=== PATIENT | female | born 1940 | race Asian ===

== ENCOUNTER → 2018-08-27 09:21 | Outpatient (CLI) | payer MEDICARE, OTHER, SELFPAY ==
[2018-08-27 11:17] LABS: Hematocrit 42.8 % (36-46); Hemoglobin 14.4 g/dL (12.0-16.0); Mean Corpuscular HGB Conc 33.5 % (30-36); Mean Corpuscular Hemoglobin 35.7 PG (26-34); Mean Corpuscular Volume 106.3 fL (80-100); Platelet Count 115 X10^3/uL (150-400); Red Blood Cell Count 4.03 X10^6/uL (4.0-5.2); Red Cell Distribution Width 13.7 % (11.6-14.8); White Blood Cell Count 3.9 X10^3/uL (4.5-11.0)
[2018-08-27 11:35] LABS: Alanine Aminotransferase 51 IU/L (9-52); Albumin Globulin Ratio 1.6 (1.0-2.8); Alkaline Phosphatase 105 U/L (38-126); Aspartate Aminotransferase 70 IU/L (14-36); Bilirubin Total 0.8 mg/dL (0.2-1.3); Blood Urea Nitrogen 15 mg/dL (7-17); Calcium 9.9 mg/dL (8.4-10.2); Carbon Dioxide 26 mmol/L (22-32); Chloride 102 mmol/L (98-107); Estimated Glomerular Filt Rate > 60.0 mL/min (>60); Globulin 3.2 g/dL (1.7-4.1); Glucose 109 mg/dL (80-110); HEMOLYSIS < 15 (0-50); Potassium 4.1 mmol/L (3.4-5.1); Sodium 141 mmol/L (137-145); Total Protein 8.2 g/dL (6.3-8.2)
[2018-08-27 11:54] LABS: Vitamin D 25 Hydroxy (D3) 52.4 ng/mL (30.0-100.0)
== END ==
PROVIDERS: PCP Student in an Organized Health Care Education/Training Program; Visit Provider Student in an Organized Health Care Education/Training Program
DX: M85.88 Other specified disorders of bone density and structure, other site (principal); Z78.0 Asymptomatic menopausal state; I10 Essential (primary) hypertension; R94.5 Abnormal results of liver function studies; D69.6 Thrombocytopenia, unspecified; Z91.89 Other specified personal risk factors, not elsewhere classified
CPT/HCPCS: 36415; 77080; 80053; 82306; 85027

== ENCOUNTER → 2019-01-24 10:23 | Outpatient (CLI) | payer MEDICARE, OTHER, SELFPAY ==
[2019-01-24 12:53] LABS: Appearance Urine UA SL CLOUDY; Bilirubin Urine UA NEGATIVE (NEGATIVE); Color Urine UA ORANGE; Glucose Urine UA NEGATIVE (Negative); Ketones Urine UA NEGATIVE (NEGATIVE); Leukocyte Esterase Urine UA TRACE (NEGATIVE); Nitrite Urine UA NEGATIVE (Negative); Occult Blood Urine UA 3+ (Negative); Protein Urine UA 1+ (Negative); Specific Gravity Urine UA <=1.005 (1.000-1.035); Urobilinogen Urine UA 0.2 E.U./dL (0.2)
[2019-01-24 13:16] LABS: pH Urine UA 7.5 (4.5-8.0)
[2019-01-24 13:17] LABS: Bacteria Urine Occasional (0-1); Culture Indicated Urine Specimen Cultured; RBC Urine 30-100/HPF (0-5/HPF); Squamous Epithelial Cell Urine 0-1 /HPF (0-5/HPF); WBC Urine 5-10/HPF (0-5/HPF)
== END ==
PROVIDERS: PCP Student in an Organized Health Care Education/Training Program; Visit Provider Hospitalist
DX: M54.9 Dorsalgia, unspecified (principal)
CPT/HCPCS: 81001; 87086

== ENCOUNTER 2019-09-28 09:08 | Emergency (ER) | payer MEDICARE, OTHER, SELFPAY ==
[2019-09-28] VITALS (9 sets, daily range): BP systolic 99–159; BP diastolic 53–68; PULSE 82–113; RESP 14–26; TEMP 36.9; O2SAT 95–100; BMI 19.2
--- NOTE | 2019-09-28 09:24 | ED.FEMALEGU ---
HPI - Female Genitourinary General Chief complaint: Urogenital-Female Stated complaint: bleeding/ lbp Time Seen by Provider: 09/28/19 09:10 Source: patient Mode of arrival: Ambulatory Limitations: no limitations History of Present Illness HPI Narrative: 78F nonsmoker with history of HTN, and elevated LFTs presents with chief complaint of bloody urine, body aches, and lightheadedness for the past few days. She denies fever, chills, or vomiting but is nauseated. She aches all over but has no specific location of pain. She denies runny nose, sore throat or chest pain, shortness of breath or cough. She states that her blood pressure was low and is referring to ?the bottom number ?being 50. She states that she has a bit fatigued, has poor appetite and gets lightheaded upon standing and walking around. She reports prior episodes of blood in urine but had a negative workup with her PCP. Related Data Home Medications Medication Instructions Recorded Confirmed CA PANTOTHENATE/FOLIC ACID/VIT 1 tab PO QDAY #0 10/27/10 02/21/19 (MULTIVITAMIN) Previous Rx's Medication Instructions Recorded amlodipine 5 mg tablet 5 mg PO QDAY #90 tab 08/29/19 benazepril 20 mg tablet 20 mg PO QDAY #90 tab 08/29/19 Allergies Allergy/AdvReac Type Severity Reaction Status Date / Time Penicillins [PENICILLINS] Allergy Unknown UNKNOWN Verified 09/28/19 10:20 Review of Systems Constitutional Constitutional: Reports body ache(s), Denies chills, Reports fatigue, Denies fever(s), Denies frequent falls, Denies lethargy and Denies weakness Eyes Eyes: Denies change in vision, Denies eye discharge, Denies irritation and Denies loss of vision ENT Ears, Nose, Mouth, and Throat: Denies change in voice, Denies dizziness, Denies neck pain, Denies sore throat and Denies throat swelling Cardiovascular Cardiovascular: Denies chest pain, Denies irregular heart rhythm, Denies lightheadedness, Denies palpitations, Denies dyspnea, Denies dyspnea on exertion and Denies orthopnea Respiratory Respiratory: Denies cough, Denies dyspnea, Denies dyspnea on exertion and Denies wheezing Gastrointestinal Gastrointestinal: Denies abdominal pain, Denies change in bowel habits, Denies diarrhea, Denies nausea and Denies vomiting Genitourinary Genitourinary: Reports hematuria, Denies flank pain, Denies urinary incontinence and Denies urinary urgency Musculoskeletal Musculoskeletal: Denies back pain, Denies muscle weakness, Denies neck pain, Denies numbness and Denies tingling Integumentary/Breasts Skin/Breast: Denies pruritus, Denies erythema, Denies rash and Denies wounds Neurologic Neurologic: Denies behavioral changes, Denies confusion, Denies dizziness, Denies frequent falls, Denies loss of vision, Denies numbness, Denies tingling and Denies weakness Psychiatric Psychiatric: Denies anxiety, Denies behavioral changes, Denies confusion, Denies depression, Denies homicidal ideation and Denies suicidal ideation Endocrine Endocrine: Reports fatigue, Denies flushing and Denies palpitations Hematologic/Lymphatic Hematologic/Lymphatic: Denies easy bruising Allergic/Immunologic Allergic/Immunologic: Denies urticaria, Denies throat swelling and Denies wheezing Patient History Medical History Hypertension (Chronic ~2009) Family History Father Cardiac arrest Smoking Status: Never smoker alcohol intake frequency: 0-2 drinks per day Substance Use Type: does not use Exam Narrative Exam Narrative: GENERAL: [78] year old patient appears stated age. Well-nourished, well-developed patient, in mild distress. HEAD: Atraumatic. Normocephalic. EYES: Pupils equal round and reactive. Extraocular motions intact. No scleral icterus. No injection or drainage. ENT: Nose without bleeding, purulent drainage. Throat without erythema, tonsillar hypertrophy or exudate. Airway patent. NECK: Trachea midline. Non tender CARDIOVASCULAR: Regular rate and rhythm without murmurs, gallops, or rubs. RESPIRATORY: Clear to auscultation. Breath sounds equal bilaterally. No wheezes, rales, or rhonchi. GASTROINTESTINAL: Abdomen soft, non-tender, nondistended. EXTREMITIES: No edema or joint tenderness. BACK: Nontender without deformity or crepitance. No flank tenderness. NEURO: AOx3. SKIN: No rash or erythema of visible areas Initial Vital Signs Initial Vital Signs: Vital Signs Temperature 98.5 F 09/28/19 09:18 Pulse Rate 113 H 09/28/19 09:18 Respiratory Rate 18 09/28/19 09:18 Blood Pressure 150/65 H 09/28/19 09:18 Pulse Oximetry 100 09/28/19 09:18 Course Course Course Narrative: initally patient in agreement with the plan but as things proceed she became increasingly nervous about the concept of a transfer and despite the ability to demonstrate full capacity and understanding of potential risks of refusing transfer she elects to go home. She fully understands that without transfer and definitive treatment she may continue to bleed, become very symptomatic, potentially permanently disabled or even . She has no local family or friends and when asked to her primary care provider is, Dr. Barboza, I called him and he was willing to speak with her as well. He shares the opinion that the patient clearly understands the circumstances ANCA demonstrate capacity. He will follow-up closely with her as an outpatient. Patient understands that she may return immediately with any change of heart and we will welcome her and continue evaluating, stabilizing and likely transferring. Orders Ordered: ED Orders 09/28/19 09:18 UA Complete [Urinalysis and Microscopic] Stat Urine Culture Stat 09/28/19 09:25 XR chest 1V Stat 09/28/19 09:28 Complete Blood Count AUTO DIFF Stat Comprehensive Metabolic Panel Stat D Dimer Stat Lactate (Lactic Acid) Stat Procalcitonin Stat Type and Screen Stat 09/28/19 10:10 CT abdomen pelvis w con Stat CT angio chest PE protocol Stat 09/28/19 10:13 Partial Thromboplastin Time Stat Prothrombin Time INR Stat 09/28/19 10:19 Blood Culture Stat 09/28/19 11:40 Hemoglobin and Hematocrit Stat 09/28/19 14:28 Hemoglobin and Hematocrit Stat Discontinued Medications Sodium Chloride (Normal Saline 0.9%) 1,620 mls @ 540 mls/hr 30 ml/kg infuse over 3 hr (1620 ml) IV NOW ONE Stop: 09/28/19 12:24 Last Infusion: 09/28/19 12:47 Dose: 0 mls/hr Documented by: Admin: 09/28/19 09:35 Dose: 540 mls/hr Documented by: GINA Levofloxacin (Levaquin) 500 mg in 100 mls @ 100 mls/hr IV NOW ONE Stop: 09/28/19 11:10 Last Infusion: 09/28/19 11:48 Dose: 0 mls/hr Documented by: Admin: 09/28/19 10:19 Dose: 100 mls/hr Documented by: GINA Consultations Consultation #1: no local urology available, 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, cannot admit without urology given antwon blood in urine, newly discovered L renal mass page to Urology, face sheet faxed to Transfer [facility], images pushed they are happy to accept Time: 12:11 Vital Signs Vital signs: Vital Signs - 8 hr 09/28/19 11:18 09/28/19 11:38 09/28/19 12:00 Pulse Rate 89 86 82 Respiratory Rate 23 18 14 Blood Pressure [Right Arm] 99/68 115/56 L 159/67 H Pulse Oximetry 100 100 99 09/28/19 12:30 09/28/19 13:40 09/28/19 14:30 Pulse Rate 90 91 H 93 H Respiratory Rate 18 17 26 H Blood Pressure [Right Arm] 107/53 L 103/57 L 108/55 L Pulse Oximetry 100 99 95 09/28/19 16:00 Pulse Rate 95 H Respiratory Rate 21 Blood Pressure [Right Arm] 130/65 Pulse Oximetry 100 MDM - Female Genitourinary Lab Data Result diagrams: 09/28/19 14:28 09/28/19 09:28 Labs: Lab Results 09/28/19 09/28/19 09/28/19 Range/Units 09:18 09:28 09:28 WBC 3.5 L (4.5-11.0) X10^3/uL RBC 2.72 L (4.0-5.2) X10^6/uL Hgb 9.1 L (12.0-16.0) g/dL Hct 26.7 L (36-46) % MCV 98.1 (80-100) fL MCH 33.3 (26-34) PG MCHC 34.0 (30-36) % RDW 13.6 (11.6-14.8) % Plt Count 110 L (150-400) X10^3/uL Neut % (Auto) 73.6 (50-75) % Lymph % (Auto) 9.9 L (25-40) % Morrow % (Auto) 14.7 H (3-14) % Eos % (Auto) 0.1 L (2-4) % Baso % (Auto) 1.7 (0-2) % Neut # (Auto) 2600 (5991-6215) /uL Lymph # (Auto) 300 L (1175-0175) /uL Morrow # (Auto) 500 (0-900) /uL Eos # (Auto) 0 (0-450) /uL Baso # (Auto) 100 (0-100) /uL PT (10.1-12.7) SECONDS INR (0.9-1.3) APTT (26.4-36.2) SECONDS D-Dimer 2860 H (<230) ng/mL Sodium (137-145) mmol/L Potassium (3.4-5.1) mmol/L Chloride (98-107) mmol/L Carbon Dioxide (22-32) mmol/L BUN (7-17) mg/dL Creatinine (0.52-1.04) mg/dL Estimated GFR (>60) mL/min BUN/Creatinine Ratio (6-22) Glucose (80-110) mg/dL Lactate (0.7-2.1) mmol/L Calcium (8.4-10.2) mg/dL Total Bilirubin (0.2-1.3) mg/dL AST (14-36) IU/L ALT (<35) IU/L Alkaline Phosphatase (38-126) U/L Total Protein (6.3-8.2) g/dL Albumin (3.5-5.0) g/dL Globulin (1.7-4.1) g/dL Albumin/Globulin Ratio (1.0-2.8) Procalcitonin (<0.5) ng/mL Urine Color Red Urine Appearance Cloudy Urine pH TNP Ur Specific Foster TNP Urine Protein TNP Urine Glucose (UA) TNP Urine Ketones TNP Urine Occult Blood TNP Urine Nitrate TNP Urine Bilirubin TNP Urine Urobilinogen TNP Ur Leukocyte Esterase TNP Urine RBC >100/hpf H (0-5/HPF) Urine WBC >100/hpf H (0-5/HPF) Urine Bacteria None seen (None) Ur Culture Indicated? Specimen cultured COVID-19 PCR (Negative) Blood Type Antibody Screen 09/28/19 09/28/19 09/28/19 Range/Units 09:28 09:28 09:28 WBC (4.5-11.0) X10^3/uL RBC (4.0-5.2) X10^6/uL Hgb (12.0-16.0) g/dL Hct (36-46) % MCV (80-100) fL MCH (26-34) PG MCHC (30-36) % RDW (11.6-14.8) % Plt Count (150-400) X10^3/uL Neut % (Auto) (50-75) % Lymph % (Auto) (25-40) % Morrow % (Auto) (3-14) % Eos % (Auto) (2-4) % Baso % (Auto) (0-2) % Neut # (Auto) (9119-1447) /uL Lymph # (Auto) (0135-3549) /uL Morrow # (Auto) (0-900) /uL Eos # (Auto) (0-450) /uL Baso # (Auto) (0-100) /uL PT (10.1-12.7) SECONDS INR (0.9-1.3) APTT (26.4-36.2) SECONDS D-Dimer (<230) ng/mL Sodium 139 (137-145) mmol/L Potassium 3.9 (3.4-5.1) mmol/L Chloride 106 (98-107) mmol/L Carbon Dioxide 25 (22-32) mmol/L BUN 12 (7-17) mg/dL Creatinine 0.74 (0.52-1.04) mg/dL Estimated GFR > 60.0 (>60) mL/min BUN/Creatinine Ratio 16.2 (6-22) Glucose 125 H (80-110) mg/dL Lactate 1.7 (0.7-2.1) mmol/L Calcium 8.5 (8.4-10.2) mg/dL Total Bilirubin 0.5 (0.2-1.3) mg/dL AST 41 H (14-36) IU/L ALT 20 (<35) IU/L Alkaline Phosphatase 86 (38-126) U/L Total Protein 6.8 (6.3-8.2) g/dL Albumin 3.9 (3.5-5.0) g/dL Globulin 2.9 (1.7-4.1) g/dL Albumin/Globulin Ratio 1.3 (1.0-2.8) Procalcitonin 0.05 (<0.5) ng/mL Urine Color Urine Appearance Urine pH Ur Specific Foster Urine Protein Urine Glucose (UA) Urine Ketones Urine Occult Blood Urine Nitrate Urine Bilirubin Urine Urobilinogen Ur Leukocyte Esterase Urine RBC (0-5/HPF) Urine WBC (0-5/HPF) Urine Bacteria (None) Ur Culture Indicated? COVID-19 PCR (Negative) Blood Type Antibody Screen 09/28/19 09/28/19 09/28/19 Range/Units 09:28 10:13 11:40 WBC (4.5-11.0) X10^3/uL RBC (4.0-5.2) X10^6/uL Hgb 7.8 L (12.0-16.0) g/dL Hct 22.7 L (36-46) % MCV (80-100) fL MCH (26-34) PG MCHC (30-36) % RDW (11.6-14.8) % Plt Count (150-400) X10^3/uL Neut % (Auto) (50-75) % Lymph % (Auto) (25-40) % Morrow % (Auto) (3-14) % Eos % (Auto) (2-4) % Baso % (Auto) (0-2) % Neut # (Auto) (4652-4935) /uL Lymph # (Auto) (6870-9861) /uL Morrow # (Auto) (0-900) /uL Eos # (Auto) (0-450) /uL Baso # (Auto) (0-100) /uL PT 11.0 (10.1-12.7) SECONDS INR 1.0 (0.9-1.3) APTT 30 (26.4-36.2) SECONDS D-Dimer (<230) ng/mL Sodium (137-145) mmol/L Potassium (3.4-5.1) mmol/L Chloride (98-107) mmol/L Carbon Dioxide (22-32) mmol/L BUN (7-17) mg/dL Creatinine (0.52-1.04) mg/dL Estimated GFR (>60) mL/min BUN/Creatinine Ratio (6-22) Glucose (80-110) mg/dL Lactate (0.7-2.1) mmol/L Calcium (8.4-10.2) mg/dL Total Bilirubin (0.2-1.3) mg/dL AST (14-36) IU/L ALT (<35) IU/L Alkaline Phosphatase (38-126) U/L Total Protein (6.3-8.2) g/dL Albumin (3.5-5.0) g/dL Globulin (1.7-4.1) g/dL Albumin/Globulin Ratio (1.0-2.8) Procalcitonin (<0.5) ng/mL Urine Color Urine Appearance Urine pH Ur Specific Foster Urine Protein Urine Glucose (UA) Urine Ketones Urine Occult Blood Urine Nitrate Urine Bilirubin Urine Urobilinogen Ur Leukocyte Esterase Urine RBC (0-5/HPF) Urine WBC (0-5/HPF) Urine Bacteria (None) Ur Culture Indicated? COVID-19 PCR (Negative) Blood Type O Positive Antibody Screen Negative 09/28/19 09/28/19 Range/Units 12:05 14:28 WBC (4.5-11.0) X10^3/uL RBC (4.0-5.2) X10^6/uL Hgb 8.3 L (12.0-16.0) g/dL Hct 24.5 L (36-46) % MCV (80-100) fL MCH (26-34) PG MCHC (30-36) % RDW (11.6-14.8) % Plt Count (150-400) X10^3/uL Neut % (Auto) (50-75) % Lymph % (Auto) (25-40) % Morrow % (Auto) (3-14) % Eos % (Auto) (2-4) % Baso % (Auto) (0-2) % Neut # (Auto) (0306-2100) /uL Lymph # (Auto) (5446-5357) /uL Morrow # (Auto) (0-900) /uL Eos # (Auto) (0-450) /uL Baso # (Auto) (0-100) /uL PT (10.1-12.7) SECONDS INR (0.9-1.3) APTT (26.4-36.2) SECONDS D-Dimer (<230) ng/mL Sodium (137-145) mmol/L Potassium (3.4-5.1) mmol/L Chloride (98-107) mmol/L Carbon Dioxide (22-32) mmol/L BUN (7-17) mg/dL Creatinine (0.52-1.04) mg/dL Estimated GFR (>60) mL/min BUN/Creatinine Ratio (6-22) Glucose (80-110) mg/dL Lactate (0.7-2.1) mmol/L Calcium (8.4-10.2) mg/dL Total Bilirubin (0.2-1.3) mg/dL AST (14-36) IU/L ALT (<35) IU/L Alkaline Phosphatase (38-126) U/L Total Protein (6.3-8.2) g/dL Albumin (3.5-5.0) g/dL Globulin (1.7-4.1) g/dL Albumin/Globulin Ratio (1.0-2.8) Procalcitonin (<0.5) ng/mL Urine Color Urine Appearance Urine pH Ur Specific Foster Urine Protein Urine Glucose (UA) Urine Ketones Urine Occult Blood Urine Nitrate Urine Bilirubin Urine Urobilinogen Ur Leukocyte Esterase Urine RBC (0-5/HPF) Urine WBC (0-5/HPF) Urine Bacteria (None) Ur Culture Indicated? COVID-19 PCR Negative (Negative) Blood Type Antibody Screen Imaging Data CT scan - chest: Radiologist's Impression: [address] [address] [address] Scan Report Signed Patient: Amanda Soto LMR#: [id number] : 1Acct:[id number] Age/Sex: 78 / FDate of Service: 09/28/19 Loc: ED Accession Number: [id number] Procedure: CT angio chest PE protocol Ordering Provider: Alphonso Werner D.O. PROCEDURE: CT ANGIO CHEST PE PROTOCOL INDICATIONS: fatigue, tachycardia, lightheaded, critical DDimer TECHNIQUE: After the administration of intravenous contrast, 2 mm thick sections acquired from the pulmonary apices to the posterior costophrenic angles. 3-dimensional maximum intensity projection (MIP) coronal and sagittal reformats were then acquired through the thorax. For radiation dose reduction, the following was used: automated exposure control, adjustment of mA and/or kV according to patient size. COMPARISON: None. FINDINGS: Image quality: Excellent. Pulmonary arteries: Pulmonary arteries are normal in size, and demonstrate no intraluminal filling defects to suggest central pulmonary embolism. Lungs and pleura: Mild dependent groundglass opacity can be seen. No pleural effusions or pneumothorax. Central and peripheral airways are patent. Mediastinum: Heart size is normal, without pericardial effusion. No mediastinal or hilar adenopathy. Thoracic aorta is normal in caliber and enhancement. The ascending thoracic aorta measures 4 cm. Esophagus is normal in caliber, without hiatal hernia. Bones and chest wall: No suspicious bony lesions. Ribs and thoracic spine appear intact throughout. Ruptured breast implants can be seen. Thyroid gland has undergone R. left hemithyroidectomy. The right thyroid is nodular. Enlarged right axillary lymph nodes seen, with the largest measuring 14 x 17 mm in greatest axial dimension, as on series 4 image 45. No supraclavicular adenopathy is seen. Numerous tiny soft tissue nodules and calcifications can be seen involving the subpectoral regions and axillary regions. Abdomen: There is a simple cyst seen involving the left liver dome. The visualized portions of the upper abdominal structures are otherwise unremarkable for imaging technique. IMPRESSION: Negative for pulmonary embolism. Dependent groundglass opacity is seen. Differential diagnosis includes pulmonary edema and atelectasis. Ruptured breast implants, with tiny nodules and calcifications involving subpectoral regions and axillary regions. Enlarged right axillary lymph nodes are seen. Prior left hemithyroidectomy. The right thyroid is nodular. If clinically appropriate, a followup ultrasound could be considered for evaluation. Incidental note is made of: Ascending aorta at the upper limits of normal Simple appearing liver dome cyst Dictated by: Felix Baca M.D. on 09/28/2019 at 9:51 Approved by: Felix Baca M.D. on 09/28/2019 at 9:58 CT scan - abdomen/pelvis: Radiologist's Impression: [address] [address] [address] Scan Report Signed Patient: Amanda Soto LMR#: [id number] : 1Acct:[id number] Age/Sex: 78 / FDate of Service: 09/28/19 Loc: ED Accession Number: [id number] Procedure: CT abdomen pelvis w con Ordering Provider: Alphonso Werner D.O. PROCEDURE: CT ABDOMEN PELVIS W CON INDICATIONS: flank pain, gross hematuria TECHNIQUE: After the administration of intravenous contrast, 5 mm thick sections acquired from the diaphragm to the symphysis. 5 mm coronal and sagittal reformats were acquired. For radiation dose reduction, the following was used: automated exposure control, adjustment of mA and/or kV according to patient size. COMPARISON: Merged With [facility], CT, CT ANGIO CHEST PE PROTOCOL, 09/28/2019, 10:11. Merged With [facility], CR, XR CHEST 1V, 09/28/2019, 9:43. FINDINGS: Image quality: Excellent. ABDOMEN: Lung bases: Lung bases are clear. Heart size is normal. Solid organs: Liver is normal in size and enhancement. A simple cyst is seen involving the left liver dome, as on series 2 image 13 measuring 12 mm and measuring 10 Hounsfield units. Gallbladder is partially decompressed at the time of this study. Biliary system is non dilated. Pancreas enhances normally. Spleen is normal in size and enhancement. No adrenal nodules. In this patient with this given history, scrutiny is given to the kidneys. There is enhancing left renal mass seen superiorly, as on series 2 image 36 and on series 4 image 31 measuring 2.3 x 1.8 x 2.5 cm. This lesion at least partially involves the left renal collecting system. There is associated prominence of the left superior renal collecting system. Peritoneum and bowel: Bowel loops demonstrate normal wall thickness and caliber. No free fluid or air. Diverticulosis is seen, without findings of active diverticulitis. Nodes and vessels: No retroperitoneal or mesenteric adenopathy by size criteria. Aorta and inferior vena cava are normal in size. Atherosclerotic calcification is noted. Miscellaneous: No ventral hernias. PELVIS: Genitourinary: Bladder wall thickness is normal. No uterus or adnexal abnormality is detected. Miscellaneous: No inguinal hernias or adenopathy. Bones: No suspicious bony lesions. There is a remote T12 anterior wedge deformity, with 30-40% loss of height anteriorly. Degenerative changes are seen throughout, which are most prominent along the lower lumbar spine. Mild levoconvex scoliotic curvature is noted. IMPRESSION: Enhancing left renal mass. Given the history, primary neoplasm is presumed. Given the appearance in the position of this mass, differential diagnosis includes transitional cell carcinoma and renal cell carcinoma. There is associated prominence of the left superior renal collecting system. No antwon findings of metastatic disease are detected. Incidental note is made of: Left liver dome simple cyst Remote T12 anterior wedge deformity Levoconvex scoliotic curvature Diverticulosis is seen, without findings of active diverticulitis. Dictated by: Felix Baca M.D. on 09/28/2019 at 10:09 Approved by: Felix Baca M.D. on 09/28/2019 at 10:15 Discharge Plan Departure Patient Disposition: Left Against Medical Advice Clinical Impression: Hematuria Qualifiers: Hematuria type: gross Qualified Code(s): R31.0 - Gross hematuria Renal cell adenocarcinoma Qualifiers: Laterality: left Qualified Code(s): C64.2 - Malignant neoplasm of left kidney, except renal pelvis Discharge Date/Time: 09/28/19 16:34 Instructions: DI for Hematuria Activity Restrictions/Additional Instructions: *You have been diagnosed with [gross hematuria, left kidney mass, likely renal cell carcinoma] *What to do: * continue to take medications as directed *Follow up with your primary care provider in 2-3 days, call for an appointment. Let them know you were seen in the Emergency Department and that we ask that you be seen in follow up *Return to ER if you should have any new, worsening or concerning symptoms Please return immediately for any change in your thinking, we will gladly continue your treatment and work on transfer Prescriptions: No Action CA PANTOTHENATE/FOLIC ACID/VIT (MULTIVITAMIN) 1 tab PO QDAY Qty: 0 RF: 0 amlodipine [Norvasc] 5 mg tablet 5 mg PO QDAY Qty: 90 RF: 1 benazepril 20 mg tablet 20 mg PO QDAY Qty: 90 RF: 1 Referrals: Pranay Barboza MD [Primary Care Provider] - Stand Alone Forms: Against Medical Advice
--- NOTE | 2019-09-28 09:25 | DI.RAD.S_ITS ---
PROCEDURE: XR CHEST 1V INDICATIONS: sepsis workup TECHNIQUE: One view of the chest was acquired. COMPARISON: Prior chest radiographs are not available from the archive for review at the time of this dictation. FINDINGS: Surgical changes and devices: None. Lungs and pleura: Lungs are clear. No pleural effusions or pneumothorax. Mediastinum: The cardiac contours are within normal limits. The aorta demonstrates calcification and tortuosity. Bones and chest wall: No suspicious bony lesions. Age-appropriate bony degenerative changes are seen. Overlying soft tissues appear unremarkable. IMPRESSION: Clear lungs, without infiltrates. Dictated by: Felix Baca M.D. on 09/28/2019 at 9:19 Approved by: Felix Baca M.D. on 09/28/2019 at 9:22
[2019-09-28] MEDS: SODIUM CHLORIDE 0.9% 1,620 ML 540 ML IV (09:35)
[2019-09-28 09:44] LABS: Bacteria Urine None Seen
--- NOTE | 2019-09-28 09:46 | PC.NURSE ---
Denies any pain with urination. Does C/O low back pain and neck pain. Pt states she has had bleeding with urination once before but they never found anything wrong and it went away on its own.
[2019-09-28 09:49] LABS: Add Manual Diff / Slide Review NO; Basophils Absolute Auto 100 /uL (0-100); Basophils Percent Auto 1.7 % (0-2); Eosinophils Absolute Auto 0 /uL (0-450); Eosinophils Percent Auto 0.1 % (2-4); Hematocrit 26.7 % (36-46); Hemoglobin 9.1 g/dL (12.0-16.0); Lymphocytes Absolute Auto 300 /uL (1100-4500); Lymphocytes Percent Auto 9.9 % (25-40); Mean Corpuscular Hemoglobin 33.3 PG (26-34); Mean Corpuscular Volume 98.1 fL (80-100); Monocytes Absolute Auto 500 /uL (0-900); Monocytes Percent Auto 14.7 % (3-14); Neutrophils Absolute Auto 2600 /uL (1500-7000); Neutrophils Percent Auto 73.6 % (50-75); Platelet Count 110 X10^3/uL (150-400); Red Blood Cell Count 2.72 X10^6/uL (4.0-5.2); Red Cell Distribution Width 13.6 % (11.6-14.8); White Blood Cell Count 3.5 X10^3/uL (4.5-11.0)
[2019-09-28 09:57] LABS: Alanine Aminotransferase 20 IU/L (<35); Albumin 3.9 g/dL (3.5-5.0); Albumin Globulin Ratio 1.3 (1.0-2.8); Alkaline Phosphatase 86 U/L (38-126); Aspartate Aminotransferase 41 IU/L (14-36); BUN Creatinine Ratio 16.2 (6-22); Bilirubin Total 0.5 mg/dL (0.2-1.3); Blood Urea Nitrogen 12 mg/dL (7-17); Calcium 8.5 mg/dL (8.4-10.2); Carbon Dioxide 25 mmol/L (22-32); Chloride 106 mmol/L (98-107); Estimated Glomerular Filt Rate > 60.0 mL/min (>60); Globulin 2.9 g/dL (1.7-4.1); Glucose 125 mg/dL (80-110); HEMOLYSIS < 15 (0-50); Lactate (Lactic Acid) 1.7 mmol/L (0.7-2.1); Potassium 3.9 mmol/L (3.4-5.1); Sodium 139 mmol/L (137-145); Total Protein 6.8 g/dL (6.3-8.2)
[2019-09-28 10:01] LABS: Appearance Urine UA CLOUDY; Color Urine UA RED; RBC Urine >100/HPF (0-5/HPF); WBC Urine >100/HPF (0-5/HPF)
[2019-09-28 10:02] LABS: Culture Indicated Urine Specimen Cultured
[2019-09-28 10:03] LABS: D Dimer 2860 ng/mL (<230)
--- NOTE | 2019-09-28 10:10 | DI.CT.S_ITS ---
PROCEDURE: CT ANGIO CHEST PE PROTOCOL INDICATIONS: fatigue, tachycardia, lightheaded, critical DDimer TECHNIQUE: After the administration of intravenous contrast, 2 mm thick sections acquired from the pulmonary apices to the posterior costophrenic angles. 3-dimensional maximum intensity projection (MIP) coronal and sagittal reformats were then acquired through the thorax. For radiation dose reduction, the following was used: automated exposure control, adjustment of mA and/or kV according to patient size. COMPARISON: None. FINDINGS: Image quality: Excellent. Pulmonary arteries: Pulmonary arteries are normal in size, and demonstrate no intraluminal filling defects to suggest central pulmonary embolism. Lungs and pleura: Mild dependent groundglass opacity can be seen. No pleural effusions or pneumothorax. Central and peripheral airways are patent. Mediastinum: Heart size is normal, without pericardial effusion. No mediastinal or hilar adenopathy. Thoracic aorta is normal in caliber and enhancement. The ascending thoracic aorta measures 4 cm. Esophagus is normal in caliber, without hiatal hernia. Bones and chest wall: No suspicious bony lesions. Ribs and thoracic spine appear intact throughout. Ruptured breast implants can be seen. Thyroid gland has undergone R. left hemithyroidectomy. The right thyroid is nodular. Enlarged right axillary lymph nodes seen, with the largest measuring 14 x 17 mm in greatest axial dimension, as on series 4 image 45. No supraclavicular adenopathy is seen. Numerous tiny soft tissue nodules and calcifications can be seen involving the subpectoral regions and axillary regions. Abdomen: There is a simple cyst seen involving the left liver dome. The visualized portions of the upper abdominal structures are otherwise unremarkable for imaging technique. IMPRESSION: Negative for pulmonary embolism. Dependent groundglass opacity is seen. Differential diagnosis includes pulmonary edema and atelectasis. Ruptured breast implants, with tiny nodules and calcifications involving subpectoral regions and axillary regions. Enlarged right axillary lymph nodes are seen. Prior left hemithyroidectomy. The right thyroid is nodular. If clinically appropriate, a followup ultrasound could be considered for evaluation. Incidental note is made of: Ascending aorta at the upper limits of normal Simple appearing liver dome cyst Dictated by: Felix Baca M.D. on 09/28/2019 at 9:51 Approved by: Felix Baca M.D. on 09/28/2019 at 9:58
--- NOTE | 2019-09-28 10:10 | DI.CT.S_ITS ---
PROCEDURE: CT ABDOMEN PELVIS W CON INDICATIONS: flank pain, gross hematuria TECHNIQUE: After the administration of intravenous contrast, 5 mm thick sections acquired from the diaphragm to the symphysis. 5 mm coronal and sagittal reformats were acquired. For radiation dose reduction, the following was used: automated exposure control, adjustment of mA and/or kV according to patient size. COMPARISON: [facility], CT, CT ANGIO CHEST PE PROTOCOL, 09/28/2019, 10:11. [facility], CR, XR CHEST 1V, 09/28/2019, 9:43. FINDINGS: Image quality: Excellent. ABDOMEN: Lung bases: Lung bases are clear. Heart size is normal. Solid organs: Liver is normal in size and enhancement. A simple cyst is seen involving the left liver dome, as on series 2 image 13 measuring 12 mm and measuring 10 Hounsfield units. Gallbladder is partially decompressed at the time of this study. Biliary system is non dilated. Pancreas enhances normally. Spleen is normal in size and enhancement. No adrenal nodules. In this patient with this given history, scrutiny is given to the kidneys. There is enhancing left renal mass seen superiorly, as on series 2 image 36 and on series 4 image 31 measuring 2.3 x 1.8 x 2.5 cm. This lesion at least partially involves the left renal collecting system. There is associated prominence of the left superior renal collecting system. Peritoneum and bowel: Bowel loops demonstrate normal wall thickness and caliber. No free fluid or air. Diverticulosis is seen, without findings of active diverticulitis. Nodes and vessels: No retroperitoneal or mesenteric adenopathy by size criteria. Aorta and inferior vena cava are normal in size. Atherosclerotic calcification is noted. Miscellaneous: No ventral hernias. PELVIS: Genitourinary: Bladder wall thickness is normal. No uterus or adnexal abnormality is detected. Miscellaneous: No inguinal hernias or adenopathy. Bones: No suspicious bony lesions. There is a remote T12 anterior wedge deformity, with 30-40% loss of height anteriorly. Degenerative changes are seen throughout, which are most prominent along the lower lumbar spine. Mild levoconvex scoliotic curvature is noted. IMPRESSION: Enhancing left renal mass. Given the history, primary neoplasm is presumed. Given the appearance in the position of this mass, differential diagnosis includes transitional cell carcinoma and renal cell carcinoma. There is associated prominence of the left superior renal collecting system. No antwon findings of metastatic disease are detected. Incidental note is made of: Left liver dome simple cyst Remote T12 anterior wedge deformity Levoconvex scoliotic curvature Diverticulosis is seen, without findings of active diverticulitis. Dictated by: Felix Baca M.D. on 09/28/2019 at 10:09 Approved by: Felix Baca M.D. on 09/28/2019 at 10:15
[2019-09-28 10:12] LABS: Procalcitonin 0.05 ng/mL (<0.5)
[2019-09-28] MEDS: levoFLOXacin 500 MG/100 ML PIGGYBACK 100 MG IV (10:19)
[2019-09-28 10:20] LABS: PTT Partial Thromboplastin Tim 30 SECONDS (26.4-36.2)
[2019-09-28 11:50] LABS: Hematocrit 22.7 % (36-46); Hemoglobin 7.8 g/dL (12.0-16.0)
[2019-09-28 13:06] LABS: COVID19 -Nasal RAPID Negative (Negative)
[2019-09-28 14:43] LABS: Hematocrit 24.5 % (36-46); Hemoglobin 8.3 g/dL (12.0-16.0)
== END 2019-09-28 16:34 | disposition left against medical advice (07) ==
PROVIDERS: Emergency Provider Emergency Medicine; PCP Student in an Organized Health Care Education/Training Program
DX: R31.0 Gross hematuria (principal); N28.89 Other specified disorders of kidney and ureter; R00.0 Tachycardia, unspecified; R42 Dizziness and giddiness; I10 Essential (primary) hypertension; R94.5 Abnormal results of liver function studies; Z11.59 Encounter for screening for other viral diseases
CPT/HCPCS: 36415; 71045; 71275; 74177; 80053; 81001; 83605; 84145; 85014; 85018; 85025; 85379; 85610; 85730; 86850; 86900; 86901; 87040; 87086; 87635; 96365; 99285; J1956; Q9967

== ENCOUNTER → 2019-12-22 08:32 | Outpatient (CLI) | payer MEDICARE, OTHER, SELFPAY | PROVIDERS: PCP Registered Nurse Diabetes Educator; Visit Provider Registered Nurse Diabetes Educator | DX: R31.9 Hematuria, unspecified (principal) | CPT/HCPCS: 87086 ==

== ENCOUNTER → 2020-01-08 10:30 | Oncology outpatient (ONC) | payer MEDICARE, OTHER, SELFPAY ==
[2020-01-08 11:50] VITALS: BP 148/73; PULSE 87; RESP 18; TEMP 37.2; O2SAT 100
--- NOTE | 2020-01-08 12:10 | ONC.CONS ---
History of Present Illness - Data of Consult Patient: new to practice Consult date: 01/08/20 Requesting Physician: CALLI Rob Primary Care Provider: CALLI Rob - Consult Narrative Reason for consult: Left renal pelvis mass Narrative: Amanda Soto is a 79 year old female with medical problems most notable for hypertension. Patient lives by herself alone. more than 10 years ago. She has no support at home. She said that in April 2019, she first noticed urine in the blood, and had a negative workup per record. On 09/28/2019 she went to emergency room at [facility] because of blood in the urine with fatigue. CT abdomen and pelvis showed an enhancing left renal mass suspicious for possible transitional cell carcinoma and renal cell carcinoma. There was associated prominence of the left superior renal collecting system. No antwon findings of metastatic disease were detected. Patient was referred to [facility], but the patient refused and left Against Medical Advice. While at the emergency room, antibiotics was given. Patient said that thereafter the hematuria has stopped for the next 3 months. About 1 and half month ago, she said that the hematuria returned. She said no pain associated with hematuria. But the hematuria was somewhat scary. Patient reports tired sometimes. Patient has a weight loss of about a couple of lb. CC: Nathalia Anthony MD Patient reports pain?: No Home Medications and Allergies Home Medications Medication Instructions Recorded Confirmed Type CA PANTOTHENATE/FOLIC ACID/VIT 1 tab PO QDAY #0 10/27/10 01/08/20 History (MULTIVITAMIN) amlodipine 5 mg tablet 5 mg PO QDAY #90 tab 12/29/19 01/08/20 Rx benazepril 20 mg tablet 20 mg PO QDAY #90 tab 12/29/19 01/08/20 Rx Allergies Allergy/AdvReac Type Severity Reaction Status Date / Time Penicillins [PENICILLINS] Allergy Unknown UNKNOWN Verified 12/22/19 08:19 Medical History - Medical, Surgical, Family History Medical History: Medical History (Last Updated 12/22/19 @ 08:49 by CALLI Rob) Anemia Hypertension Onset Date: ~2009 Left renal mass Surgical History: Surgical History (Last Updated 01/08/20 @ 12:33 by Nathalia Anthony MD) H/O tubal ligation History of thyroid surgery Family History: Family History (Last Reviewed 09/28/19 @ 09:54 by Alphonso Werner DO) Father Cardiac arrest - Social History Smoking Status: Never smoker Substance Use Type: does not use Alcohol Intake Frequency: 0-2 drinks per day Review of Systems - Patient Self-Reported Symptoms SR Constitution: Weight loss/gain SR Cardiovascular issues: Dizzy/lightheaded SR Genitourinary issues: Blood in urine SR Musculoskeletal issues: Muscle weakness, Back or neck pain, Cold hands or feet SR Neuro issues: Lightheaded/dizzy All systems PM: reviewed and no additional remarkable complaints except as stated Exam Vital signs: Vital Signs Temp Pulse Resp BP Pulse Ox 01/08/20 11:50 99 F 87 18 148/73 H 100 Intake and Output 01/07/20 01/08/20 01/08/20 23:59 07:59 15:59 Other: Weight 52 kg Patient Weight 01/08/20 23:59 Weight 52 kg - Constitutional positive no acute distress, positive thin, positive chronically ill appearing, positive cooperative - Routine HEENT Exam Head: Present: normocephalic, atraumatic Eye: Present: EOMI, PERRL, normal accommodation. Absent: conjunctival icterus - Routine Neck Exam Present: supple. Absent: lymphadenopathy, thyromegaly - Routine Chest/Breast/Axilla Exam Axillae: Absent: lymphadenopathy - Routine Respiratory Exam Present: Clear to auscultation bilaterally. Absent: accessory muscle use, rales, wheezes - Routine Cardiovascular Exam Present: RRR, S1, S2. Absent: murmur, gallop, rubs - Routine Abdominal Exam Present: soft. Absent: tenderness, organomegaly - Routine Extremities Exam Absent: edema - Routine Neurological Exam Present: alert, oriented X3, CN II-XII intact. Absent: sensory deficit, motor deficit - Routine Psychiatric Exam Present: normal affect Results - Labs Pending Assessment and Plan (1) Left renal mass Overview: 79-year-old female with history of hypertension now presents with more than 9 months of intermittent hematuria without associated pain. She was evaluated at emergency room in August [address] scan showed left renal pelvis enhancing lesion highly suspicious for transitional cell carcinoma or renal cell carcinoma. Patient was referred here for further evaluation. Assessment: Patient brought in a book where it says that hematuria can be caused by nephritis. Patient said that her symptom is exactly like that. And she wants me to prescribe antibiotics. I tried to explain to the patient that the blood in the urine has several different etiologies. One of the etiologies could be nephritis. However given her imaging findings of left pelvis mass, it is most likely a result of malignancy. I talked with our urologist Dr. Bell today and reviewed the CT scans together. Dr. Bell was suspicious that the patient may have urothelial carcinoma. I will obtain blood work and will also obtain a staging studies including CT chest abdomen pelvis with contrast. Dr. eBll agreed to see the patient urgently. Plan: CBC, CMP CT CAP w/contrast Urgent referral to Dr. Bell RTC in one month (2) Painless hematuria See above discussion
[2020-01-08 13:12] LABS: Add Manual Diff / Slide Review NO; Basophils Absolute Auto 0 /uL (0-100); Basophils Percent Auto 1.1 % (0-2); Eosinophils Absolute Auto 0 /uL (0-450); Eosinophils Percent Auto 0.9 % (2-4); Hematocrit 36.4 % (36-46); Hemoglobin 11.8 g/dL (12.0-16.0); Lymphocytes Absolute Auto 1200 /uL (1100-4500); Lymphocytes Percent Auto 34.3 % (25-40); Mean Corpuscular HGB Conc 32.5 % (30-36); Mean Corpuscular Hemoglobin 30.6 PG (26-34); Monocytes Absolute Auto 200 /uL (0-900); Neutrophils Absolute Auto 2000 /uL (1500-7000); Neutrophils Percent Auto 56.7 % (50-75); Platelet Count 165 X10^3/uL (150-400); Red Blood Cell Count 3.87 X10^6/uL (4.0-5.2); Red Cell Distribution Width 18.7 % (11.6-14.8); White Blood Cell Count 3.5 X10^3/uL (4.5-11.0)
[2020-01-08 13:23] LABS: Alanine Aminotransferase 25 IU/L (<35); Albumin 4.5 g/dL (3.5-5.0); Albumin Globulin Ratio 1.3 (1.0-2.8); Alkaline Phosphatase 101 U/L (38-126); Aspartate Aminotransferase 47 IU/L (14-36); BUN Creatinine Ratio 14.8 (6-22); Bilirubin Total 0.5 mg/dL (0.2-1.3); Blood Urea Nitrogen 9 mg/dL (7-17); Carbon Dioxide 28 mmol/L (22-32); Chloride 106 mmol/L (98-107); Estimated Glomerular Filt Rate > 60.0 mL/min (>60); Globulin 3.4 g/dL (1.7-4.1); Glucose 97 mg/dL (80-110); HEMOLYSIS < 15 (0-50); Potassium 3.9 mmol/L (3.4-5.1); Sodium 141 mmol/L (137-145); Total Protein 7.9 g/dL (6.3-8.2)
--- NOTE | 2020-01-08 13:40 | ONC.MSW ---
Description: New Pt F/F Visit Activity: Met with pt prior to her provider visit, reason for visit being anemia w/hematuria. Pt had marked advanced directives/POLST on her Distress Screening needs. In talking with her, she clarified that she already has these forms, but that she had forgotten them at home, and all she needs is the doctor's signature. She is very concerned about the bleeding, and has brought in a [facility] book to show Dr. Anthony, feeling like it may be kidney related. Discussed role of navigator to provide ongoing assistance as needed. No further needs are indicated today. She will plan on bringing in her AD forms next week for signature.
--- NOTE | 2020-01-09 12:06 | ONC.SCHED ---
Sent urgent referral to Dr. Bell.
--- NOTE | 2020-01-09 12:20 | ONC.SCHED ---
I did not fax referral to Dr. Bell but handed it to Hafsa, his stucco applicator.
== END ==
PROVIDERS: PCP Registered Nurse Diabetes Educator; Referring Provider Registered Nurse Diabetes Educator; Visit Provider Internal Medicine Hematology & Oncology
DX: N28.89 Other specified disorders of kidney and ureter (principal); R31.9 Hematuria, unspecified; R59.0 Localized enlarged lymph nodes; I10 Essential (primary) hypertension
CPT/HCPCS: 36415; 71260; 74177; 80053; 85025; 99204; 99214; Q9967

== ENCOUNTER → 2020-01-08 13:06 | Outpatient (CLI) | payer MEDICARE, OTHER, SELFPAY ==
--- NOTE | 2020-01-08 13:09 | DI.CT.S_ITS ---
PROCEDURE: CT CHEST ABD PEL W CON INDICATIONS: mass in left kidney, hematuria TECHNIQUE: After the administration of oral and intravenous contrast, 5 mm thick sections acquired from the lung apices to the symphysis. 5 mm coronal and sagittal reformats were performed, with additional 7 mm coronal MIP reformats through the lungs. For radiation dose reduction, the following was used: automated exposure control, adjustment of mA and/or kV according to patient size. COMPARISON: [facility], CT, CT ABDOMEN PELVIS W CON, 09/28/2019, 10:11. [facility], CT, CT ANGIO CHEST PE PROTOCOL, 09/28/2019, 10:11. FINDINGS: Image quality: Excellent. CHEST: Lungs and pleura: Tiny 2-3 mm sub solid appearing nodule in lateral aspect of right upper lobe is seen series 2, image 121. This was not definitively seen on previous study. Biapical scarring is seen. No acute airspace opacities. No pleural effusions or pneumothorax. Central and peripheral airways appear patent and normal in caliber. Mediastinum: Heart size is normal. No pericardial effusion. No mediastinal or hilar adenopathy by size criteria. Thoracic aorta and central pulmonary arteries are normal in size. [id number] atherosclerotic calcifications are seen. Esophagus is normal in caliber. No hiatal hernia. Chest wall: Previously described enlarged right axillary lymph nodes are again seen and measures up to 15 x 17 mm in size not significantly changed from prior study series 4, image 20. Previously described numerous tiny soft tissue nodules and calcifications are again seen involving bilateral subpectoral region and axillary regions. Again noted is prior left hemithyroidectomy. Right thyroid lobe is nodular in appearance not significantly changed from prior study. Ruptured bilateral breast implants are again seen also unchanged from prior study. ABDOMEN: Solid organs: Liver is normal in size and enhancement. Simple cysts is again seen in left lobe of liver unchanged from prior study. Gallbladder is within normal limits.. Biliary system is non dilated. Pancreas enhances normally. Spleen is normal in size and enhancement. No adrenal nodules. Again noted is an enhancing superior left renal mass within the left renal collecting system and measures approximately 2.3 x 1.8 x 2.5 cm in size unchanged from previous study. Mild prominence of the left renal collecting system is again seen and unchanged. No right-sided enhancing renal mass or hydronephrosis is seen. Bilateral ureters show no gross abnormality. Mass effect on the posterior aspect of left renal vein is noted. Left renal vein is patent. Peritoneum and bowel: Bowel loops demonstrate normal wall thickness and caliber. No free fluid or air. Nodes and vessels: No retroperitoneal or mesenteric adenopathy by size criteria. Aorta and inferior vena cava are normal in size. Miscellaneous: No ventral hernias. PELVIS: Genitourinary: Bladder wall thickness is normal. Miscellaneous: No inguinal hernias or adenopathy. Bones: No suspicious bony lesions. Stable chronic anterior wedge compression deformity at T12 level is again seen unchanged from prior study. Degenerative disc disease throughout thoracic and lumbar spine is again seen. IMPRESSION: 1. Patient's known left upper renal collecting system solid enhancing mass is not significantly changed in size and appearance since previous study. Mild prominence of left renal collecting system. Finding is suggestive of malignant process such as transitional cell carcinoma or renal cell carcinoma. No right-sided enhancing renal lesion or hydronephrosis is seen. 2. No gross abnormalities are seen in bilateral ureters and urinary bladder. 3. Tiny 2-3 mm sub solid nodule is seen in lateral aspect of right upper lobe not definitely seen on previous study and most likely represent benign process. No other pulmonary nodule or mass is seen. 4. Stable enlarged right axillary lymph nodes and bilateral subpectoral and axillary soft tissue density nodules. Suggestion of prior ruptured bilateral breast implants. 5. No abdominal or pelvic lymphadenopathy. Dictated by: Joao Bates M.D. on 01/08/2020 at 15:14 Approved by: Joao Bates M.D. on 01/08/2020 at 15:45
== END ==
PROVIDERS: PCP Registered Nurse Diabetes Educator; Referring Provider Internal Medicine Hematology & Oncology; Visit Provider Internal Medicine Hematology & Oncology
DX: N28.89 Other specified disorders of kidney and ureter (principal); R31.9 Hematuria, unspecified; R59.0 Localized enlarged lymph nodes
CPT/HCPCS: 71260; 74177; Q9967

== ENCOUNTER → 2020-01-19 16:10 | Outpatient (CLI) | payer MEDICARE, OTHER, SELFPAY | PROVIDERS: PCP Registered Nurse Diabetes Educator; Visit Provider Specialist | DX: R31.9 Hematuria, unspecified (principal) | CPT/HCPCS: 87077; 87086 ==

== ENCOUNTER → 2020-07-12 14:53 | Outpatient (CLI) | payer MEDICARE, OTHER, SELFPAY ==
[2020-07-12] MEDS: COVID-19 VACC, Ad26(JANSSEN)/PF 0.5 ML IM (15:07)
== END ==
PROVIDERS: PCP Registered Nurse Diabetes Educator; Visit Provider Internal Medicine
DX: Z23 Encounter for immunization (principal)
CPT/HCPCS: 0031A; 91303

== ENCOUNTER → 2021-01-17 09:39 | Outpatient (CLI) | payer MEDICARE, OTHER, SELFPAY ==
[2021-01-17 11:05] LABS: Add Manual Diff / Slide Review NO; Basophils Absolute Auto 100 /uL (0-100); Basophils Percent Auto 0.9 % (0-2); Eosinophils Absolute Auto 0 /uL (0-450); Eosinophils Percent Auto 0.5 % (2-4); Hematocrit 35.3 % (36-46); Lymphocytes Absolute Auto 700 /uL (1100-4500); Lymphocytes Percent Auto 11.4 % (25-40); Mean Corpuscular HGB Conc 31.1 % (30-36); Mean Corpuscular Hemoglobin 28.9 PG (26-34); Mean Corpuscular Volume 92.9 fL (80-100); Monocytes Absolute Auto 400 /uL (0-900); Monocytes Percent Auto 6.8 % (3-14); Neutrophils Absolute Auto 4800 /uL (1500-7000); Neutrophils Percent Auto 80.4 % (50-75); Platelet Count 256 X10^3/uL (150-400); Red Cell Distribution Width 27.9 % (11.6-14.8)
[2021-01-17 12:09] LABS: Anisocytosis 3+
[2021-01-17 12:45] LABS: Alanine Aminotransferase 14 IU/L (<35); Albumin 4.3 g/dL (3.5-5.0); Albumin Globulin Ratio 1.2 (1.0-2.8); Alkaline Phosphatase 103 U/L (38-126); Aspartate Aminotransferase 50 IU/L (14-36); BUN Creatinine Ratio 15.4 (6-22); Bilirubin Total 0.4 mg/dL (0.2-1.3); Blood Urea Nitrogen 10 mg/dL (7-17); Carbon Dioxide 31 mmol/L (22-32); Chloride 106 mmol/L (98-107); Cholesterol 125 mg/dL (140-199); Estimated Glomerular Filt Rate > 60.0 mL/min (>60); Globulin 3.6 g/dL (1.7-4.1); Glucose 98 mg/dL (80-110); HDL Cholesterol 70 mg/dL (40-60); HEMOLYSIS < 15 (0-50); LDL Cholesterol Calculated 31 mg/dL (<100); Potassium 4.3 mmol/L (3.4-5.1); Sodium 142 mmol/L (137-145); Total Protein 7.9 g/dL (6.3-8.2); Triglycerides 118 mg/dL (35-150)
== END ==
PROVIDERS: PCP Registered Nurse Diabetes Educator; Referring Provider Registered Nurse Diabetes Educator; Visit Provider Registered Nurse Diabetes Educator
DX: D69.6 Thrombocytopenia, unspecified (principal); E78.00 Pure hypercholesterolemia, unspecified; I10 Essential (primary) hypertension; R31.0 Gross hematuria; R79.89 Other specified abnormal findings of blood chemistry
CPT/HCPCS: 36415; 80053; 80061; 84443; 85025

== ENCOUNTER 2021-09-03 06:19 | Inpatient (IN) | payer MEDICARE, OTHER, SELFPAY ==
[2021-09-03] VITALS (22 sets, daily range): BP systolic 118–150; BP diastolic 55–72; PULSE 82–107; RESP 13–22; TEMP 36.6–37.4; O2SAT 92–100; BMI 17.0
--- NOTE | 2021-09-03 06:30 | ED.GENADULT ---
HPI - General Adult <Raul Alvarez DO - Last Filed: 09/03/21 18:08> General Chief complaint: Back Pain/Injury Stated complaint: back pain 3 days Time Seen by Provider: 09/03/21 06:23 Source: patient Mode of arrival: Wheelchair Limitations: no limitations History of Present Illness HPI narrative: Patient is an 80-year-old female who is here for evaluation of bilateral lower back pain. She states that it started a couple days ago. Was a gradual onset. She has been to putting topical cream over the area without any improvement. She has had pain like this in the past which she states went away on its own. She does have some pain down into her right calf. No urinary symptoms. No change in bowel habits. No fevers. No vomiting. Review the patient's record shows that she has a history of a mass on her left kidney. According to her primary doctor's note from December of last year there was extensive discussions about multiple urologist and oncologist informing her that this is most likely malignant however the patient apparently has been in denial this stating that she does not think that she has cancer because she was feeling so well. Related Data Previous Rx's Medication Instructions Recorded amlodipine 5 mg tablet (Norvasc) 5 mg PO QDAY #90 tab 01/17/21 benazepril 20 mg tablet 20 mg PO QDAY #90 tab 01/17/21 Allergies Allergy/AdvReac Type Severity Reaction Status Date / Time Penicillins [PENICILLINS] Allergy Unknown UNKNOWN Verified 01/17/21 09:11 Review of Systems <Raul Alvarez DO - Last Filed: 09/03/21 18:08> Constitutional Constitutional: Denies fever(s) Gastrointestinal Gastrointestinal: Reports system reviewed and no additional complaints, except as documented Genitourinary Genitourinary: Reports system reviewed and no additional complaints, except as documented Musculoskeletal Musculoskeletal: Reports back pain Integumentary/Breasts Skin/Breast: Reports system reviewed and no additional complaints, except as documented Neurologic Neurologic: Reports system reviewed and no additional complaints, except as documented Patient History <Raul Alvarez DO - Last Filed: 09/03/21 18:08> Medical History Anemia Arthritis Gross hematuria Hypertension (~2009) Left renal mass Left renal mass Surgical History H/O tubal ligation History of bladder surgery History of thyroid surgery Family History Father Cardiac arrest Social History marital status: household members: none Smoking Status: Never smoker alcohol intake: current substance use type: does not use caffeine: Yes Smoking Status: Never smoker alcohol intake frequency: 0-2 drinks per day Substance Use Type: does not use Exam <DO Kirsten Jenkins Last Filed: 09/03/21 18:08> Initial Vital Signs Initial Vital Signs: Vital Signs Temperature 98.1 F 09/03/21 06:25 Pulse Rate 92 H 09/03/21 06:25 Respiratory Rate 22 09/03/21 06:25 Blood Pressure 150/66 H 09/03/21 06:25 Pulse Oximetry 100 09/03/21 06:25 HENMT Head: normal to inspection and normocephalic Resp Effort & Inspection: normal respiratory effort Auscultation: clear to auscultation bilaterally Cardio Rate: regular rate Rhythm: regular rhythm GI Inspection: normal to inspection Back/Spine/Pelvis Back: No CVA tenderness Thoracic/Lumbar Spine: No paraspinal tenderness, No thoracic spinal tenderness and No lumbar spinal tenderness Skin General: no rashes or lesions noted Neuro General: patient alert, patient awake and moves all extremities Extrem Other: No gross deformities <DO Kirsten Ashton Last Filed: 09/03/21 10:40> Initial Vital Signs Initial Vital Signs: Vital Signs Temperature 98.1 F 09/03/21 06:25 Pulse Rate 92 H 09/03/21 06:25 Respiratory Rate 22 09/03/21 06:25 Blood Pressure 150/66 H 09/03/21 06:25 Pulse Oximetry 100 09/03/21 06:25 Course <DO Kirsten Jenkins Last Filed: 09/03/21 18:08> Orders Ordered: Bisacodyl (Bisacodyl 10 Mg Supp) 10 mg WI DAILY PRN PRN Reason: Constipation Enoxaparin Sodium (Enoxaparin 40 Mg/0.4 Ml Syringe) 30 mg SUBCUT DAILY HUSAM Hydroxyzine Pamoate (Hydroxyzine Pamoate 25 Mg Capsule) 50 mg PO Q6HR PRN PRN Reason: Nausea Naloxone HCl (Naloxone 0.4 Mg/Ml Vial) 0.2 mg IV Q2MIN PRN PRN Reason: Opiate Reversal Oxycodone HCl (Oxycodone Ir 5 Mg Tablet) 5 mg PO Q4HR PRN PRN Reason: Pain, Moderate (4-6) Oxycodone HCl (Oxycodone Ir 10 Mg Tablet) 10 mg PO Q4HR PRN PRN Reason: Pain, Severe (7-10) Last Admin: 09/03/21 16:39 Dose: 10 mg Documented by: Admin: 09/03/21 11:52 Dose: 10 mg Documented by: TINA Polyethylene Glycol (Polyethylene Glycol 3350 17 Gm Powd.Pack) 17 gm PO DAILY HUSAM Sennosides (Sennosides 8.6 Mg Tablet) 17.2 mg PO BEDTIME HUSAM Discontinued Medications Sodium Chloride (Normal Saline 0.9%) 1,000 mls @ 500 mls/hr IV BOLUS ONE Stop: 09/03/21 08:30 Last Infusion: 09/03/21 09:21 Dose: 0 mls/hr Documented by: Admin: 09/03/21 06:48 Dose: 500 mls/hr Documented by: GENESIS Morphine Sulfate (Morphine 2 Mg/Ml Inj) 2 mg IV NOW ONE Stop: 09/03/21 06:32 Last Admin: 09/03/21 06:48 Dose: 2 mg Documented by: GENESIS Vital Signs Vital signs: Vital Signs - 8 hr 09/03/21 06:25 09/03/21 06:30 09/03/21 07:00 Temperature 98.1 F Pulse Rate 92 H 85 Respiratory Rate 22 Blood Pressure 150/66 H 150/66 H Pulse Oximetry 100 99 100 09/03/21 07:36 09/03/21 07:46 09/03/21 08:00 Temperature 98 F Pulse Rate 99 H 99 H 95 H Respiratory Rate 18 17 Blood Pressure 126/58 L 126/58 L Pulse Oximetry 100 96 98 09/03/21 09:15 09/03/21 09:16 09/03/21 09:30 Temperature 98.3 F Pulse Rate 96 H 95 H 97 H Respiratory Rate 17 20 20 Blood Pressure 118/59 L 118/59 L 122/61 Pulse Oximetry 98 100 97 09/03/21 10:00 Temperature Pulse Rate 93 H Respiratory Rate 13 Blood Pressure 118/55 L Pulse Oximetry 97 <Alphonso Werner DO - Last Filed: 09/03/21 10:40> Orders Ordered: Bisacodyl (Bisacodyl 10 Mg Supp) 10 mg WI DAILY PRN PRN Reason: Constipation Enoxaparin Sodium (Enoxaparin 40 Mg/0.4 Ml Syringe) 30 mg SUBCUT DAILY HUSAM Hydroxyzine Pamoate (Hydroxyzine Pamoate 25 Mg Capsule) 50 mg PO Q6HR PRN PRN Reason: Nausea Naloxone HCl (Naloxone 0.4 Mg/Ml Vial) 0.2 mg IV Q2MIN PRN PRN Reason: Opiate Reversal Oxycodone HCl (Oxycodone Ir 5 Mg Tablet) 5 mg PO Q4HR PRN PRN Reason: Pain, Moderate (4-6) Oxycodone HCl (Oxycodone Ir 10 Mg Tablet) 10 mg PO Q4HR PRN PRN Reason: Pain, Severe (7-10) Last Admin: 09/03/21 16:39 Dose: 10 mg Documented by: Admin: 09/03/21 11:52 Dose: 10 mg Documented by: TINA Polyethylene Glycol (Polyethylene Glycol 3350 17 Gm Powd.Pack) 17 gm PO DAILY HUSAM Sennosides (Sennosides 8.6 Mg Tablet) 17.2 mg PO BEDTIME HUSAM Discontinued Medications Sodium Chloride (Normal Saline 0.9%) 1,000 mls @ 500 mls/hr IV BOLUS ONE Stop: 09/03/21 08:30 Last Infusion: 09/03/21 09:21 Dose: 0 mls/hr Documented by: Admin: 09/03/21 06:48 Dose: 500 mls/hr Documented by: GENESIS Morphine Sulfate (Morphine 2 Mg/Ml Inj) 2 mg IV NOW ONE Stop: 09/03/21 06:32 Last Admin: 09/03/21 06:48 Dose: 2 mg Documented by: GENESIS Vital Signs Vital signs: Vital Signs - 8 hr 09/03/21 06:25 09/03/21 06:30 09/03/21 07:00 Temperature 98.1 F Pulse Rate 92 H 85 Respiratory Rate 22 Blood Pressure 150/66 H 150/66 H Pulse Oximetry 100 99 100 09/03/21 07:36 09/03/21 07:46 09/03/21 08:00 Temperature 98 F Pulse Rate 99 H 99 H 95 H Respiratory Rate 18 17 Blood Pressure 126/58 L 126/58 L Pulse Oximetry 100 96 98 09/03/21 09:15 09/03/21 09:16 09/03/21 09:30 Temperature 98.3 F Pulse Rate 96 H 95 H 97 H Respiratory Rate 17 20 20 Blood Pressure 118/59 L 118/59 L 122/61 Pulse Oximetry 98 100 97 09/03/21 10:00 Temperature Pulse Rate 93 H Respiratory Rate 13 Blood Pressure 118/55 L Pulse Oximetry 97 Medical Decision Making <Raul Alvarez, DO - Last Filed: 09/03/21 18:08> Lab Data Result diagrams: 09/03/21 06:40 09/03/21 06:40 Labs: Lab Results 09/03/21 09/03/21 09/03/21 Range/Units 06:40 06:40 07:20 WBC 7.4 (4.5-11.0) X10^3/uL RBC 2.32 L (4.0-5.2) X10^6/uL Hgb 6.6 L* (12.0-16.0) g/dL Hct 21.3 L (36-46) % MCV 91.8 (80-100) fL MCH 28.6 (26-34) PG MCHC 31.2 (30-36) % RDW 14.5 (11.6-14.8) % Plt Count 406 H (150-400) X10^3/uL Neut % (Auto) 81.0 H (50-75) % Lymph % (Auto) 10.2 L (25-40) % Montgomery % (Auto) 7.0 (3-14) % Eos % (Auto) 1.4 L (2-4) % Baso % (Auto) 0.4 (0-2) % Neut # (Auto) 6000 (4895-5031) /uL Lymph # (Auto) 700 L (0475-2038) /uL Montgomery # (Auto) 500 (0-900) /uL Eos # (Auto) 100 (0-450) /uL Baso # (Auto) 0 (0-100) /uL RBC Morphology See below Hypochromasia 1+ H Anisocytosis 1+ H Sodium 138 (137-145) mmol/L Potassium 3.9 (3.4-5.1) mmol/L Chloride 105 (98-107) mmol/L Carbon Dioxide 24 (22-32) mmol/L BUN 11 (7-17) mg/dL Creatinine 0.80 (0.52-1.04) mg/dL Estimated GFR > 60 (>60) mL/min BUN/Creatinine Ratio 13.8 (6-22) Glucose 107 (80-110) mg/dL Calcium 9.0 (8.4-10.2) mg/dL Total Bilirubin 0.5 (0.2-1.3) mg/dL AST 36 (14-36) IU/L ALT 9 (<35) IU/L Alkaline Phosphatase 105 (38-126) U/L Total Protein 7.9 (6.3-8.2) g/dL Albumin 3.8 (3.5-5.0) g/dL Globulin 4.1 (1.7-4.1) g/dL Albumin/Globulin Ratio 0.9 L (1.0-2.8) Lipase 157 (23-300) U/L Urine Color Urine Appearance Urine pH (4.5-8.0) Ur Specific Metcalfe (1.000-1.035) Urine Protein (Negative) Urine Glucose (UA) (Negative) g/dL Urine Ketones (NEGATIVE) Urine Occult Blood (Negative) Urine Nitrate (Negative) Urine Bilirubin (NEGATIVE) Urine Urobilinogen (0.2) E.U./dL Ur Leukocyte Esterase (NEGATIVE) Urine RBC (0-5/HPF) Urine WBC (0-5/HPF) Urine Bacteria (None) Ur Culture Indicated? SARS-CoV-2 (PCR) (Negative) Blood Type O Positive Antibody Screen Negative Crossmatch See Detail 09/03/21 09/03/21 Range/Units 07:27 08:42 WBC (4.5-11.0) X10^3/uL RBC (4.0-5.2) X10^6/uL Hgb (12.0-16.0) g/dL Hct (36-46) % MCV (80-100) fL MCH (26-34) PG MCHC (30-36) % RDW (11.6-14.8) % Plt Count (150-400) X10^3/uL Neut % (Auto) (50-75) % Lymph % (Auto) (25-40) % Montgomery % (Auto) (3-14) % Eos % (Auto) (2-4) % Baso % (Auto) (0-2) % Neut # (Auto) (4388-2773) /uL Lymph # (Auto) (7874-7852) /uL Montgomery # (Auto) (0-900) /uL Eos # (Auto) (0-450) /uL Baso # (Auto) (0-100) /uL RBC Morphology Hypochromasia Anisocytosis Sodium (137-145) mmol/L Potassium (3.4-5.1) mmol/L Chloride (98-107) mmol/L Carbon Dioxide (22-32) mmol/L BUN (7-17) mg/dL Creatinine (0.52-1.04) mg/dL Estimated GFR (>60) mL/min BUN/Creatinine Ratio (6-22) Glucose (80-110) mg/dL Calcium (8.4-10.2) mg/dL Total Bilirubin (0.2-1.3) mg/dL AST (14-36) IU/L ALT (<35) IU/L Alkaline Phosphatase (38-126) U/L Total Protein (6.3-8.2) g/dL Albumin (3.5-5.0) g/dL Globulin (1.7-4.1) g/dL Albumin/Globulin Ratio (1.0-2.8) Lipase (23-300) U/L Urine Color Red Urine Appearance Cloudy Urine pH 7.5 (4.5-8.0) Ur Specific Metcalfe 1.010 (1.000-1.035) Urine Protein 1+ H (Negative) Urine Glucose (UA) Negative (Negative) g/dL Urine Ketones Negative (NEGATIVE) Urine Occult Blood 3+ H (Negative) Urine Nitrate Negative (Negative) Urine Bilirubin Negative (NEGATIVE) Urine Urobilinogen 0.2 (0.2) E.U./dL Ur Leukocyte Esterase Trace H (NEGATIVE) Urine RBC 10-30/hpf H (0-5/HPF) Urine WBC None seen (0-5/HPF) Urine Bacteria None seen (None) Ur Culture Indicated? Cult not indicated SARS-CoV-2 (PCR) Negative (Negative) Blood Type Antibody Screen Crossmatch MDM Narrative Medical decision making narrative: 3 days a back pain without any specific trauma. Review of her medical record shows that she has a left renal mass which does not appear to have had any treatment up to this point. Also has had a history of an anemia and hematuria. Differential includes multiple things to include fractures, AAA, metastatic disease, renal stones and others. Will obtain labs and CT scan. Will provide pain control. Care turned over to Dr. Werner to follow up and disposition. <Alphonso Werner, DO - Last Filed: 09/03/21 10:40> Lab Data Labs: Lab Results 09/03/21 09/03/21 09/03/21 Range/Units 06:40 06:40 07:20 WBC 7.4 (4.5-11.0) X10^3/uL RBC 2.32 L (4.0-5.2) X10^6/uL Hgb 6.6 L* (12.0-16.0) g/dL Hct 21.3 L (36-46) % MCV 91.8 (80-100) fL MCH 28.6 (26-34) PG MCHC 31.2 (30-36) % RDW 14.5 (11.6-14.8) % Plt Count 406 H (150-400) X10^3/uL Neut % (Auto) 81.0 H (50-75) % Lymph % (Auto) 10.2 L (25-40) % Montgomery % (Auto) 7.0 (3-14) % Eos % (Auto) 1.4 L (2-4) % Baso % (Auto) 0.4 (0-2) % Neut # (Auto) 6000 (5036-4321) /uL Lymph # (Auto) 700 L (6394-0041) /uL Montgomery # (Auto) 500 (0-900) /uL Eos # (Auto) 100 (0-450) /uL Baso # (Auto) 0 (0-100) /uL RBC Morphology See below Hypochromasia 1+ H Anisocytosis 1+ H Sodium 138 (137-145) mmol/L Potassium 3.9 (3.4-5.1) mmol/L Chloride 105 (98-107) mmol/L Carbon Dioxide 24 (22-32) mmol/L BUN 11 (7-17) mg/dL Creatinine 0.80 (0.52-1.04) mg/dL Estimated GFR > 60 (>60) mL/min BUN/Creatinine Ratio 13.8 (6-22) Glucose 107 (80-110) mg/dL Calcium 9.0 (8.4-10.2) mg/dL Total Bilirubin 0.5 (0.2-1.3) mg/dL AST 36 (14-36) IU/L ALT 9 (<35) IU/L Alkaline Phosphatase 105 (38-126) U/L Total Protein 7.9 (6.3-8.2) g/dL Albumin 3.8 (3.5-5.0) g/dL Globulin 4.1 (1.7-4.1) g/dL Albumin/Globulin Ratio 0.9 L (1.0-2.8) Lipase 157 (23-300) U/L Urine Color Urine Appearance Urine pH (4.5-8.0) Ur Specific Metcalfe (1.000-1.035) Urine Protein (Negative) Urine Glucose (UA) (Negative) g/dL Urine Ketones (NEGATIVE) Urine Occult Blood (Negative) Urine Nitrate (Negative) Urine Bilirubin (NEGATIVE) Urine Urobilinogen (0.2) E.U./dL Ur Leukocyte Esterase (NEGATIVE) Urine RBC (0-5/HPF) Urine WBC (0-5/HPF) Urine Bacteria (None) Ur Culture Indicated? SARS-CoV-2 (PCR) (Negative) Blood Type O Positive Antibody Screen Negative Crossmatch See Detail 09/03/21 09/03/21 Range/Units 07:27 08:42 WBC (4.5-11.0) X10^3/uL RBC (4.0-5.2) X10^6/uL Hgb (12.0-16.0) g/dL Hct (36-46) % MCV (80-100) fL MCH (26-34) PG MCHC (30-36) % RDW (11.6-14.8) % Plt Count (150-400) X10^3/uL Neut % (Auto) (50-75) % Lymph % (Auto) (25-40) % Montgomery % (Auto) (3-14) % Eos % (Auto) (2-4) % Baso % (Auto) (0-2) % Neut # (Auto) (5784-2097) /uL Lymph # (Auto) (2453-1013) /uL Montgomery # (Auto) (0-900) /uL Eos # (Auto) (0-450) /uL Baso # (Auto) (0-100) /uL RBC Morphology Hypochromasia Anisocytosis Sodium (137-145) mmol/L Potassium (3.4-5.1) mmol/L Chloride (98-107) mmol/L Carbon Dioxide (22-32) mmol/L BUN (7-17) mg/dL Creatinine (0.52-1.04) mg/dL Estimated GFR (>60) mL/min BUN/Creatinine Ratio (6-22) Glucose (80-110) mg/dL Calcium (8.4-10.2) mg/dL Total Bilirubin (0.2-1.3) mg/dL AST (14-36) IU/L ALT (<35) IU/L Alkaline Phosphatase (38-126) U/L Total Protein (6.3-8.2) g/dL Albumin (3.5-5.0) g/dL Globulin (1.7-4.1) g/dL Albumin/Globulin Ratio (1.0-2.8) Lipase (23-300) U/L Urine Color Red Urine Appearance Cloudy Urine pH 7.5 (4.5-8.0) Ur Specific Metcalfe 1.010 (1.000-1.035) Urine Protein 1+ H (Negative) Urine Glucose (UA) Negative (Negative) g/dL Urine Ketones Negative (NEGATIVE) Urine Occult Blood 3+ H (Negative) Urine Nitrate Negative (Negative) Urine Bilirubin Negative (NEGATIVE) Urine Urobilinogen 0.2 (0.2) E.U./dL Ur Leukocyte Esterase Trace H (NEGATIVE) Urine RBC 10-30/hpf H (0-5/HPF) Urine WBC None seen (0-5/HPF) Urine Bacteria None seen (None) Ur Culture Indicated? Cult not indicated SARS-CoV-2 (PCR) Negative (Negative) Blood Type Antibody Screen Crossmatch Imaging Data CT scan - abdomen/pelvis: Radiologist's Impression: Launch?[address] [address] [address] Scan Report Signed Patient: Amanda Soto MR#: [id number] : 1940 Acct:[id number] Age/Sex: 80 / F Date of Service: 09/03/21 Loc: ED Accession Number: [id number] ?? Procedure: CT abdomen pelvis w con Ordering Provider: Raul Alvarez D.O. PROCEDURE:? CT ABDOMEN PELVIS W CON ? INDICATIONS:? bilat lower back pain hx of L renal mass no treatment ? TECHNIQUE:? After the administration of intravenous contrast, axial sections acquired from the lung bases to the pubic symphysis.? Coronal and sagittal reformats were performed.? For radiation dose reduction, the following was used:? automated exposure control, adjustment of mA and/or kV according to patient size.? ? COMPARISON:? [facility], CT, CT ABDOMEN PELVIS W CON, 09/28/2019, 10:11. ? FINDINGS:? Image quality:? Excellent.? ? Lung bases:? New right subpleural nodule along the diaphragmatic surface measuring about 9 mm.? Other small nodules are present.? There basal atelectasis.? Partially visualized breast nodules also seen.? Heart:? No significant findings. ? ABDOMEN:? Liver:? Left lobe cysts.? New masses are apparent, for example in segment 5 (axial image 23) measuring 18 mm. Gallbladder:? Unremarkable, possible fundal adenomyomatosis. Biliary ducts:? Unremarkable.? ? Pancreas:? Unremarkable.? ? Spleen:? Unremarkable.? ? Adrenal Glands:? New left adrenal mass measuring 52 x 33 mm. Kidneys and Ureters:? Extensive left renal mass measuring about 97 x 59 mm on coronal image 30. There is suspected abutment or invasion of the adjacent lateral conal and anterior pararenal fascia. There is also likely invasion to the collecting system.? Adjacent metastatic deposit adjacent to the diaphragmatic bekah (axial image 23 measures 29 x 29 mm.? The renal artery travels through this mass.? No macroscopic tumor in the left renal vein, although there is suspected invasion into the branches.? ? Stomach and Bowel:? Colonic diverticula. Peritoneum:? No abnormal intraperitoneal fluid.? No free air.? ? Ventral Wall: ? No hernias.? Abdominal Nodes:? As above.? There is also other areas of retroperitoneal lymphadenopathy. Vessels:? Aortoiliac atherosclerotic calcifications. ? PELVIS: Pelvic Organs:? Unremarkable.? ? Bladder:? Unremarkable.? ? Pelvic Nodes: No enlarged lymph nodes.? Miscellaneous: No hernias are seen. ? ? ? Bones: degenerative changes at the pubic symphysis.? No suspicious osseous lesions.? Spinal spondylosis.? Similar T12 height loss. ? ? IMPRESSION:? Increased size of left renal mass with local invasion and adjacent metastatic deposits as described above, also involving the left adrenal gland.? Suspected metastatic disease to the lungs and liver.? Consider complete outpatient staging imaging. ? ? Partially visualize breast nodules again seen, possibly related to ruptured implants.? ? Dictated by: Jaden Ruano M.D. on 09/03/2021 at 7:46 ? ? Approved by: Jaden Ruano M.D. on 09/03/2021 at 7:59 ? MDM Narrative Medical decision making narrative: 3 days a back pain without any specific trauma. Review of her medical record shows that she has a left renal mass which does not appear to have had any treatment up to this point. Also has had a history of an anemia and hematuria. Differential includes multiple things to include fractures, AAA, metastatic disease, renal stones and others. Will obtain labs and CT scan. Will provide pain control. Care turned over to Dr. Werner to follow up and disposition. 699 (Alphonso) Patient received in sign out from Dr. Alvarez. I have reviewed the clinical course and performed an independent history and physical exam. Discharge Plan Departure Patient Disposition: Admitted as Observation Clinical Impression: Left renal mass, Anemia Admit Date/Time: 09/03/21 10:00 Admit Provider: Agapito Rangel
--- NOTE | 2021-09-03 06:33 | DI.CT.S_ITS ---
PROCEDURE: CT ABDOMEN PELVIS W CON INDICATIONS: bilat lower back pain hx of L renal mass no treatment TECHNIQUE: After the administration of intravenous contrast, axial sections acquired from the lung bases to the pubic symphysis. Coronal and sagittal reformats were performed. For radiation dose reduction, the following was used: automated exposure control, adjustment of mA and/or kV according to patient size. COMPARISON: [facility], CT, CT ABDOMEN PELVIS W CON, 09/28/2019, 10:11. FINDINGS: Image quality: Excellent. Lung bases: New right subpleural nodule along the diaphragmatic surface measuring about 9 mm. Other small nodules are present. There basal atelectasis. Partially visualized breast nodules also seen. Heart: No significant findings. ABDOMEN: Liver: Left lobe cysts. New masses are apparent, for example in segment 5 (axial image 23) measuring 18 mm. Gallbladder: Unremarkable, possible fundal adenomyomatosis. Biliary ducts: Unremarkable. Pancreas: Unremarkable. Spleen: Unremarkable. Adrenal Glands: New left adrenal mass measuring 52 x 33 mm. Kidneys and Ureters: Extensive left renal mass measuring about 97 x 59 mm on coronal image 30. There is suspected abutment or invasion of the adjacent lateral conal and anterior pararenal fascia. There is also likely invasion to the collecting system. Adjacent metastatic deposit adjacent to the diaphragmatic bekah (axial image 23 measures 29 x 29 mm. The renal artery travels through this mass. No macroscopic tumor in the left renal vein, although there is suspected invasion into the branches. Stomach and Bowel: Colonic diverticula. Peritoneum: No abnormal intraperitoneal fluid. No free air. Ventral Wall: No hernias. Abdominal Nodes: As above. There is also other areas of retroperitoneal lymphadenopathy. Vessels: Aortoiliac atherosclerotic calcifications. PELVIS: Pelvic Organs: Unremarkable. Bladder: Unremarkable. Pelvic Nodes: No enlarged lymph nodes. Miscellaneous: No hernias are seen. Bones: degenerative changes at the pubic symphysis. No suspicious osseous lesions. Spinal spondylosis. Similar T12 height loss. IMPRESSION: Increased size of left renal mass with local invasion and adjacent metastatic deposits as described above, also involving the left adrenal gland. Suspected metastatic disease to the lungs and liver. Consider complete outpatient staging imaging. Partially visualize breast nodules again seen, possibly related to ruptured implants. Dictated by: Jaden Ruano M.D. on 09/03/2021 at 7:46 Approved by: Jaden Ruano M.D. on 09/03/2021 at 7:59
[2021-09-03] MEDS: MORPHINE 2 MG/ML INJ IV (06:48)
[2021-09-03] MEDS: SODIUM CHLORIDE 0.9% 1,000 ML 500 ML IV (06:48)
[2021-09-03 07:03] LABS: Basophils Absolute Auto 0 /uL (0-100); Basophils Percent Auto 0.4 % (0-2); Eosinophils Absolute Auto 100 /uL (0-450); Eosinophils Percent Auto 1.4 % (2-4); Hematocrit 21.3 % (36-46); Lymphocytes Absolute Auto 700 /uL (1100-4500); Lymphocytes Percent Auto 10.2 % (25-40); Mean Corpuscular HGB Conc 31.2 % (30-36); Mean Corpuscular Hemoglobin 28.6 PG (26-34); Mean Corpuscular Volume 91.8 fL (80-100); Monocytes Absolute Auto 500 /uL (0-900); Neutrophils Absolute Auto 6000 /uL (1500-7000); Platelet Count 406 X10^3/uL (150-400); Red Blood Cell Count 2.32 X10^6/uL (4.0-5.2); Red Cell Distribution Width 14.5 % (11.6-14.8); White Blood Cell Count 7.4 X10^3/uL (4.5-11.0)
[2021-09-03 07:05] LABS: Hemoglobin 6.6 g/dL (12.0-16.0)
[2021-09-03 07:06] LABS: Add Manual Diff / Slide Review SLIDE REVIEW
[2021-09-03 07:10] LABS: Alanine Aminotransferase 9 IU/L (<35); Albumin 3.8 g/dL (3.5-5.0); Albumin Globulin Ratio 0.9 (1.0-2.8); Alkaline Phosphatase 105 U/L (38-126); Aspartate Aminotransferase 36 IU/L (14-36); BUN Creatinine Ratio 13.8 (6-22); Bilirubin Total 0.5 mg/dL (0.2-1.3); Blood Urea Nitrogen 11 mg/dL (7-17); Carbon Dioxide 24 mmol/L (22-32); Chloride 105 mmol/L (98-107); Estimated Glomerular Filt Rate > 60 mL/min (>60); Globulin 4.1 g/dL (1.7-4.1); Glucose 107 mg/dL (80-110); HEMOLYSIS < 15 (0-50); Lipase 157 U/L (23-300); Potassium 3.9 mmol/L (3.4-5.1); Sodium 138 mmol/L (137-145); Total Protein 7.9 g/dL (6.3-8.2)
[2021-09-03 07:52] LABS: Anisocytosis 1+; Hypochromasia 1+
[2021-09-03 08:11] LABS: COVID19 -Nasal RAPID Negative (Negative)
[2021-09-03 10:20] LABS: Bacteria Urine None Seen; Culture Indicated Urine Cult Not Indicated; RBC Urine 10-30/HPF (0-5/HPF); WBC Urine None Seen (0-5/HPF)
[2021-09-03 10:39] LABS: Bilirubin Urine UA NEGATIVE (NEGATIVE); Glucose Urine UA NEGATIVE (Negative); Ketones Urine UA NEGATIVE (NEGATIVE); Leukocyte Esterase Urine UA TRACE (NEGATIVE); Nitrite Urine UA NEGATIVE (Negative); Occult Blood Urine UA 3+ (Negative); Protein Urine UA 1+ (Negative); Urobilinogen Urine UA 0.2 E.U./dL (0.2); pH Urine UA 7.5 (4.5-8.0)
[2021-09-03 10:42] LABS: Color Urine UA RED
[2021-09-03 10:43] LABS: Appearance Urine UA Cloudy
--- NOTE | 2021-09-03 11:06 | PC.NURSE ---
Addendum entered by Aurora Dunlap R.N. 09/03/21 17:18: Pt completed second unit RBC's w/o incidence. Call light w/in reach, bed alarm on for pt safety. Continue w/plan of care. Addendum entered by Aurora Dunlap R.N. 09/03/21 14:48: Pt med w/oxycodone for discomfort w/good relief. Receiving 2U PRBC's w/o incidence. SpO2 96% RA Resting at intervals at this time. Call light w/in reach, bed alarm on for pt safety. Continue w/plan of care. Original Note: Pt arrived from ED at 1050 Oriented to room & call system. Awaiting MD to see.
[2021-09-03] MEDS: OXYCODONE IR 10 MG TABLET PO ×3 (11:52→20:29)
--- NOTE | 2021-09-03 14:29 | PM.HP.1 ---
History of Present Illness History of Present Illness Date Patient Seen: 09/03/21 Chief complaint: back pain 3 days Narrative: Patient is 80-year-old female presents with intractable back pain. She has history left renal mass suspicious for RCC. She states this was initially noted about 5 years ago. Patient has had subsequent CT scans showing enlargement of this mass. She did not believe CA diagnosis and did not seek further medical evaluation. She thought it was somehow related to her breast implants which she had at age 21. Patient states she has had some pain in the back area for quite a while but a few days ago the pain became much more intense and no longer relieved with OTC NSAIDs. She also reports pain in the head, nape of neck, spine as well as severe cramping in the calves. She denies fevers, chills, nausea or vomiting, chest pain, dyspnea, dysuria. She has had intermittent blood in urine. She has lost 5 lb in recent weeks. ER evaluation showed she is anemic with hemoglobin of 6.6. Her abdomen and pelvis CT showed a large left renal mass measuring 97 x 59 mm, likely left adrenal metastases, multiple liver metastases and lung metastases. Patient History Medical History Anemia Arthritis Gross hematuria Hypertension (~2009) Left renal mass Left renal mass Surgical History H/O tubal ligation History of bladder surgery History of thyroid surgery Family & Social History Family History Father Cardiac arrest Social History: household members none Prior Living Arrangements House Safety & Behavioral: Feels Safe in Current Yes Environment Been Physically Hurt or No Threatened By a Person Tobacco & Substance use: Smoking Status Never smoker alcohol intake current alcohol intake frequency 0-2 drinks per day Substance Use Type does not use Meds Home Medications and Allergies Home Medications Medication Instructions Recorded Confirmed Type amlodipine 5 mg tablet (Norvasc) 5 mg PO QDAY #90 tab 01/17/21 09/03/21 Rx benazepril 20 mg tablet 20 mg PO QDAY #90 tab 01/17/21 09/03/21 Rx Allergies Allergy/AdvReac Type Severity Reaction Status Date / Time Penicillins [PENICILLINS] Allergy Unknown UNKNOWN Verified 01/17/21 09:11 Review of Systems Review of Systems Narrative: Complete 10 point ROS negative other than noted above Exam Vital Signs (past 8 hours): - 09/03/21 06:30 09/03/21 07:00 09/03/21 07:36 Temperature 98 F Pulse Rate 85 99 H Respiratory Rate 18 Blood Pressure 150/66 H 126/58 L Pulse Oximetry 99 100 100 09/03/21 07:46 09/03/21 08:00 09/03/21 09:15 Temperature 98.3 F Pulse Rate 99 H 95 H 96 H Respiratory Rate 17 17 Blood Pressure 126/58 L 118/59 L Pulse Oximetry 96 98 98 09/03/21 09:16 09/03/21 09:30 09/03/21 10:00 Temperature Pulse Rate 95 H 97 H 93 H Respiratory Rate 20 20 13 Blood Pressure 118/59 L 122/61 118/55 L Pulse Oximetry 100 97 97 09/03/21 10:30 09/03/21 10:50 09/03/21 11:40 Temperature 98.1 F 98.2 F Pulse Rate 94 H 94 H 84 Respiratory Rate 20 17 18 Blood Pressure 118/58 L 141/68 H 136/63 Pulse Oximetry 98 100 09/03/21 12:00 Temperature 98.5 F Pulse Rate 89 Respiratory Rate 18 Blood Pressure 125/64 Pulse Oximetry Oxygen Delivery Method Room Air Narrative Exam Narrative: General: Alert and cooperative female in moderate discomfort HEENT: Nontraumatic, anicteric, pupils equal Neck: Thyroid surgery scar, No lymphadenopathy Lungs: Clear to auscultation Heart: Regular rhythm without murmur Abdomen: Nondistended, no abdominal mass, no HSM, nontender Extremities: No edema Neurological: Appropriate affect, normal speech Skin: No skin nodules Objective Labs Result Diagrams: 09/03/21 06:40 09/03/21 06:40 Labs: Laboratory Results - last 24 hr 09/03/21 09/03/21 09/03/21 06:40 06:40 07:20 WBC 7.4 RBC 2.32 L Hgb 6.6 L* Hct 21.3 L MCV 91.8 MCH 28.6 MCHC 31.2 RDW 14.5 Plt Count 406 H Neut % (Auto) 81.0 H Lymph % (Auto) 10.2 L [place] % (Auto) 7.0 Eos % (Auto) 1.4 L Baso % (Auto) 0.4 Neut # (Auto) 6000 Lymph # (Auto) 700 L [place] # (Auto) 500 Eos # (Auto) 100 Baso # (Auto) 0 RBC Morphology See below Hypochromasia 1+ H Anisocytosis 1+ H Sodium 138 Potassium 3.9 Chloride 105 Carbon Dioxide 24 BUN 11 Creatinine 0.80 Estimated GFR > 60 BUN/Creatinine Ratio 13.8 Glucose 107 Calcium 9.0 Total Bilirubin 0.5 AST 36 ALT 9 Alkaline Phosphatase 105 Total Protein 7.9 Albumin 3.8 Globulin 4.1 Albumin/Globulin Ratio 0.9 L Lipase 157 Urine Color Urine Appearance Urine pH Ur Specific [place] Urine Protein Urine Glucose (UA) Urine Ketones Urine Occult Blood Urine Nitrate Urine Bilirubin Urine Urobilinogen Ur Leukocyte Esterase Urine RBC Urine WBC Urine Bacteria Ur Culture Indicated? SARS-CoV-2 (PCR) Blood Type O Positive Antibody Screen Negative Crossmatch See Detail 09/03/21 09/03/21 07:27 08:42 WBC RBC Hgb Hct MCV MCH MCHC RDW Plt Count Neut % (Auto) Lymph % (Auto) [place] % (Auto) Eos % (Auto) Baso % (Auto) Neut # (Auto) Lymph # (Auto) [place] # (Auto) Eos # (Auto) Baso # (Auto) RBC Morphology Hypochromasia Anisocytosis Sodium Potassium Chloride Carbon Dioxide BUN Creatinine Estimated GFR BUN/Creatinine Ratio Glucose Calcium Total Bilirubin AST ALT Alkaline Phosphatase Total Protein Albumin Globulin Albumin/Globulin Ratio Lipase Urine Color Red Urine Appearance Cloudy Urine pH 7.5 Ur Specific [place] 1.010 Urine Protein 1+ H Urine Glucose (UA) Negative Urine Ketones Negative Urine Occult Blood 3+ H Urine Nitrate Negative Urine Bilirubin Negative Urine Urobilinogen 0.2 Ur Leukocyte Esterase Trace H Urine RBC 10-30/hpf H Urine WBC None seen Urine Bacteria None seen Ur Culture Indicated? Cult not indicated SARS-CoV-2 (PCR) Negative Blood Type Antibody Screen Crossmatch Assessment & Plan Assessment & Plan narrative: 80-year-old female presenting with intractable pain 1. Intractable pain secondary to metastatic left renal cell carcinoma -patient with 5 year history of left renal mass which elected not to workup, now presenting with metastatic disease -patient does not wish oncology referral for palliative treatment -admit observation for pain control -oxycodone 5-10 mg q.4 hours as needed -Atarax 50 mg q.6 hours as needed for severe leg cramps -daily MiraLax, senna HS, Dulcolax p.o./p.r. as needed -hospice referral 2. Acute on chronic anemia related to malignancy -transfuse 2 units PRBC 3. Chronic hypertension -patient on amlodipine and benazepril at home -hold antihypertensives and monitor blood pressure, may not need if transitioning to hospice care Code status: Patient wishes DNR DVT prophylaxis: Lovenox Time Spent With Patient Critical Care time: I spent a total of [] minutes of critical care time on this patient's care today; this time is exclusive of procedural time. Quality VTE Deep Vein Thrombosis/Pulmonary Embolism Present on Admission: No
[2021-09-03] MEDS: SENNOSIDES 8.6 MG TABLET 17.2 MG PO (20:29)
[2021-09-04] VITALS (7 sets, daily range): BP systolic 115–135; BP diastolic 60–72; PULSE 107–133; RESP 17–22; TEMP 36.9–39.6; O2SAT 94–98
[2021-09-04] MEDS: OXYCODONE IR 10 MG TABLET PO ×2 (02:09→06:18)
[2021-09-04 06:11] LABS: Add Manual Diff / Slide Review NO; Basophils Absolute Auto 0 /uL (0-100); Basophils Percent Auto 0.2 % (0-2); Eosinophils Absolute Auto 100 /uL (0-450); Hemoglobin 10.6 g/dL (12.0-16.0); Lymphocytes Absolute Auto 500 /uL (1100-4500); Lymphocytes Percent Auto 3.9 % (25-40); Mean Corpuscular Hemoglobin 29.3 PG (26-34); Mean Corpuscular Volume 91.5 fL (80-100); Monocytes Absolute Auto 1000 /uL (0-900); Monocytes Percent Auto 7.7 % (3-14); Neutrophils Absolute Auto 11800 /uL (1500-7000); Neutrophils Percent Auto 87.2 % (50-75); Platelet Count 348 X10^3/uL (150-400); Red Blood Cell Count 3.61 X10^6/uL (4.0-5.2); Red Cell Distribution Width 14.6 % (11.6-14.8); White Blood Cell Count 13.5 X10^3/uL (4.5-11.0)
[2021-09-04 06:23] LABS: BUN Creatinine Ratio 9.4 (6-22); Blood Urea Nitrogen 8 mg/dL (7-17); Calcium 8.9 mg/dL (8.4-10.2); Carbon Dioxide 25 mmol/L (22-32); Chloride 105 mmol/L (98-107); Estimated Glomerular Filt Rate > 60 mL/min (>60); Glucose 90 mg/dL (80-110); HEMOLYSIS < 15 (0-50); Potassium 4.3 mmol/L (3.4-5.1); Sodium 137 mmol/L (137-145)
[2021-09-04] MEDS: polyethylene glycoL 3350 17 GM POWD.PACK PO (09:00)
[2021-09-04] MEDS: ENOXAPARIN 30 MG/0.3 ML SYRINGE SUBCUT (09:00)
[2021-09-04] MEDS: OXYCODONE IR 5 MG TABLET 15 MG PO ×2 (10:43→21:16)
[2021-09-04] MEDS: hydrOXYzine pamoate 25 MG CAPSULE 50 MG PO (10:43)
[2021-09-04] MEDS: FUROSEMIDE 40 MG/4 ML VIAL 20 MG IV (10:43)
--- NOTE | 2021-09-04 13:08 | CM.DANOTE ---
Addendum entered by MIKE Johnson 09/04/21 15:37: ADD: SW met bedside with pt and her local friend Khris and pt mostly not responsive but was able to nod her head yes for wanting SW to coordinate and talk with her friend Khris. Khris confirms pt lives alone and is for many years and has not had contact with her family from [facility] for 30 years. Friend Khris has been her financial CPA for over 10 yrs and states he and his are her only friends. Khris also provided copy of DPOA pwk and STACI made a copy to scan into her chart showing Khris and then his Ally as pt's DPOAs. STACI discussed possible options of home with Hospice and PP CG vs SNF under [facility] under [facility] for 5-7 days and then PP for room and board. Khris states pt's preference would be home with PP CG and he is aware pt likely would need 24/7 care. Khris feels pt would be able to financially afford this at home and he has a friend who's mother recently went through Hospice at home with 24/7 CGs and he will reach out to that agency today and STACI provided PP CG agency list and requested he begin placing calls rut as pt cannot remain in the hospital for long awaiting a plan to be set up and he acknowledges understanding and the urgency. Khris aware that if it will take a few days to a week to set up home plan then pt likely would need to d/c to SNF with [facility] Me[facility] while awaiting finalizing home plan. Although pt currently having high heart rate, limited responsiveness, not eating, and limited fluids. Pt's address is [address] [place] [address]. Khris's cell phone is [phone] and home is [phone]. Plan: SW to follow up with DPROBERTO Khris in the AM to determine if he has scheduled PP CG for home with [facility] vs need to d/c to SNF under [facility] while awaiting home plan. MIKE Johnson Original Note: Patient is an 80 yo female who was admitted on 09/03/21 for Back Pain. Pt has [employer] and [employer] for insurance and her PCP is Sung Mercado. EMR was reviewed. Per MD, pt with a hx of renal mass that pt did not choose to follow up on a few years ago and now admitted with larger left renal mass with mets to her adrenal, liver, and lungs. Per RN, pt on [facility] Measures and given pain medication and seems more comfortable but has not been out of bed yet. SW met bedside with pt and explained role and inquired about pt's living situation as pt has stated she lives alone in [place]. Pt opened her eyes but has very flat affect and then closed her eyes and took a while to respond and SW inquired if pt is in pain and she states I'm feeling ok right now but I just can't seem to figure out what it is that I need. Unclear what pt's statement meant but pt then states her friend Juana Nguyen will return bedside this afternoon and requests SW meet with him when he arrives bedside as pt does not seem in a place to participate in d/c discussion but unclear if pt is overwhelmed, anxious, in discomfort etc... Per RN, pt's friend was bedside earlier and RN will update SW when he arrives again after lunch time. Per MD, pt somewhat tachy and could be due to pain and anxiety but will keep pt overnight and assess if pt stable for d/c tomorrow and pt has expressed that she would like to d/c home with Hospice but unclear if pt will be safe to d/c home alone or if friends can provide assist. SW made [facility] referral and called and updated that pt will not d/c home today. They confirm they received faxed clinicals along with Advanced Directive. No POLST on file at this time and MD agreeable with completing POLST prior to d/c if needed. Plan: SW to follow closely for friend Khris to arrive bedside towards discussion regarding d/c plans and if home with [facility] will be possible. MIKE Johnson Discharge Planning/Care Management CM Discharge Assessment Start: 09/04/21 13:06 Freq: Status: Active Protocol: Document 09/04/21 13:06 BF (Rec: 09/04/21 13:08 [id number]) Discharge Planning Assessment Assigned Leather Tacker MIKE Velasquez DPOA/Assigned Designee Name Khris Nguyen Contact Information [phone] Advance Directives? Yes Advance Directives on File No History Provided By Patient,Medical Record Has Patient been admitted in last 30 No days? Prior Living Arrangements House Household Members none Type of transporation used prior to Drives own vehicle admit Independent with ADL's Yes Is patient alert and oriented? Yes Caregiver for Another No Comment [facility] Care/Hospice Barriers to Discharge Yes Comment Lives alone, currently not independent with ADLs Discharge Plan Home Transportation Arrangement Friend Khris can transport if safe for home Referrals Initiated Other Additional Comment [facility] referral made Whiteboard Updated in Patient Room with Yes name and ext. # of Leather Tacker Review Status In Process Please Provide Date Initial DC 09/04/21 Assessment Was Performed Next Review Type Continued Stay Review
--- NOTE | 2021-09-04 15:48 | PC.NURSE ---
This am, pt found to be tachycardic with HR of 115 on am vitals. MD informed, furosemide ordered for possible fluid overload from 2 units PRBCs yesterday, tele placed on pt (sinus tachycardia), pain and anxiety also treated at this time. Pt's HR continued to increase up as high as 130s after lunch, pt also found to be minimally responsive at this time, grimacing but no c/o pain. When asked if she is uncomfortable or short of breath, pt does not respond. MD informed and to bedside, pt lethargic during assessment. On afternoon vitals, oral temperature is 103.2 F, HR still elevated in 130s. MD informed. Chest xray, blood cultures and antibiotics ordered.
--- NOTE | 2021-09-04 15:50 | DI.RAD.S_ITS ---
PROCEDURE: XR CHEST 1V INDICATIONS: fever TECHNIQUE: One view of the chest was acquired. COMPARISON: Located Within [facility], CT, CT CHEST ABD PEL W CON, 01/08/2020, 14:06. Located Within [facility], CT, CT ABDOMEN PELVIS W CON, 09/03/2021, 7:30. Located Within [facility], CR, XR CHEST 1V, 09/28/2019, 9:43. FINDINGS: Surgical changes and devices: None. Lungs and pleura: Left basilar infiltrate. There is a 1.2 cm right basilar nodular opacity, correlating with a lung nodule seen on the comparison CT, consistent with metastasis. No pleural effusions or pneumothorax. Mediastinum: Mediastinal contours appear normal. Heart size is normal. Bones and chest wall: No suspicious bony lesions. Overlying soft tissues appear unremarkable. IMPRESSION: 1. Left basilar infiltrate suspicious for pneumonia. 2. Right basilar nodular density, likely the pleural lesion seen on the comparison CT. Dictated by: Jewell Sherman M.D. on 09/04/2021 at 15:21 Approved by: Jewell Sherman M.D. on 09/04/2021 at 15:26
[2021-09-04] MEDS: levoFLOXacin 250 MG/50 ML PIGGYBACK 100 MG IV (16:13)
--- NOTE | 2021-09-04 18:05 | PM.PN.1 ---
Subjective Subjective Date Patient Seen: 09/04/21 Interval history: 80-year-old female presenting with intractable pain and findings of metastatic left renal cell carcinoma. Patient has been some improvement of severe pain with oxycodone and hydroxyzine. Patient noted to be tachycardic in sinus rhythm and later in the day spiked a temp to 103. Chest x-ray shows left lower lung infiltrate likely present on admission and red as atelectasis on abdominal CT. She does not have a cough. Exam Vital Signs (past 8 hours): - 09/04/21 11:00 09/04/21 15:00 09/04/21 17:12 Temperature 99.8 F H 103.2 F H 99.3 F Pulse Rate 126 H 133 H Respiratory Rate 20 20 Blood Pressure 122/60 121/66 Pulse Oximetry 98 95 Oxygen Delivery Method Room Air Narrative Exam Narrative: General: Elderly female who is moderately uncomfortable Lungs: Clear Heart: Regular but tachycardic Extremities: No distal edema Objective Labs Result Diagrams: 09/04/21 05:54 09/04/21 05:54 Labs: Laboratory Results - last 24 hr 09/04/21 09/04/21 05:54 05:54 WBC 13.5 H D RBC 3.61 L Hgb 10.6 L Hct 33.0 L MCV 91.5 MCH 29.3 MCHC 32.0 RDW 14.6 Plt Count 348 Neut % (Auto) 87.2 H Lymph % (Auto) 3.9 L [place] % (Auto) 7.7 Eos % (Auto) 1.0 L Baso % (Auto) 0.2 Neut # (Auto) 30327 H Lymph # (Auto) 500 L [place] # (Auto) 1000 H Eos # (Auto) 100 Baso # (Auto) 0 Sodium 137 Potassium 4.3 Chloride 105 Carbon Dioxide 25 BUN 8 Creatinine 0.85 Estimated GFR > 60 BUN/Creatinine Ratio 9.4 Glucose 90 Calcium 8.9 PFSH Medical History Anemia Arthritis Gross hematuria Hypertension (~2009) Left renal mass Left renal mass Surgical History H/O tubal ligation History of bladder surgery History of thyroid surgery Family History Father Cardiac arrest Social History marital status: household members: none Smoking Status: Never smoker alcohol intake: current substance use type: does not use caffeine: Yes Assessment & Plan Assessment & Plan narrative: 80-year-old female presenting with intractable pain 1. Intractable pain secondary to metastatic left renal cell carcinoma -patient with 5 year history of left renal mass which elected not to workup, now presenting with metastatic disease -patient does not wish oncology referral for palliative treatment -admit for pain control -oxycodone increase to 10-50 mg q.3 hours as needed -Atarax 50 mg q.6 hours as needed for severe leg cramps -daily MiraLax, senna HS, Dulcolax p.o./p.r. as needed -hospice referral 2. Bacterial pneumonia, probably present on admission -spiked temp 103? on 09/04, WBC increased to 13.5 -declined blood cultures -started on Levaquin 3.? Acute on chronic anemia related to malignancy -transfused 2 units PRBC -received Lasix 09/04 due to concern for fluid overload when became tachycardic 4. Chronic hypertension -patient on amlodipine and benazepril at home -hold antihypertensives and monitor blood pressure, may not need if transitioning to hospice care Patient's friend Khris is authorized to make decisions if patient is unable. Hopefully can discharge patient to home hospice or alternatively SNF comfort care. Time Spent With Patient Critical Care time: I spent a total of [] minutes of critical care time on this patient's care today; this time is exclusive of procedural time. Quality VTE Deep Vein Thrombosis/Pulmonary Embolism Present on Admission: No
[2021-09-04] MEDS: SENNOSIDES 8.6 MG TABLET 17.2 MG PO (21:16)
[2021-09-05] VITALS (8 sets, daily range): BP systolic 88–117; BP diastolic 38–61; PULSE 65–124; RESP 16–18; TEMP 35.7–37.3; O2SAT 93–98
--- NOTE | 2021-09-05 04:40 | PC.NURSE ---
Shift Note: Around 193, patient HR 180s-200s, outgoing nurse and this nurse checked the patient and vital signs were taken, patient was awake and oriented, denies any discomfort/pain at this time, outgoing RN, this RN and an CORPORATE SPECIALIST personally notified Dr Rangel and Dr Carranza on patient condition and replied that the patient was DNR and comfort care, and Dr. Rangel verbally ordered to discontinue telemetry monitoring. Telemetry discontinued and vital signs were rechecked with HR 120s, O2 sat >92% at room air and BP was within acceptable limits. Will continue to monitor.
[2021-09-05 07:54] LABS: Add Manual Diff / Slide Review YES; Hematocrit 32.3 % (36-46); Hemoglobin 10.3 g/dL (12.0-16.0); Mean Corpuscular HGB Conc 31.9 % (30-36); Platelet Count 344 X10^3/uL (150-400); Red Blood Cell Count 3.54 X10^6/uL (4.0-5.2); Red Cell Distribution Width 14.7 % (11.6-14.8); White Blood Cell Count 18.9 X10^3/uL (4.5-11.0)
[2021-09-05 08:04] LABS: Blood Urea Nitrogen 21 mg/dL (7-17); Calcium 8.7 mg/dL (8.4-10.2); Carbon Dioxide 21 mmol/L (22-32); Chloride 102 mmol/L (98-107); Estimated Glomerular Filt Rate 29 mL/min (>60); Glucose 100 mg/dL (80-110); HEMOLYSIS < 15 (0-50); Potassium 4.8 mmol/L (3.4-5.1); Sodium 133 mmol/L (137-145)
[2021-09-05 08:16] LABS: Anisocytosis 1+; Neutrophils Absolute Manual 17388 /uL (3000-5900); Total Cells Counted 100
[2021-09-05 08:17] LABS: Polychromasia 1+
[2021-09-05] MEDS: OXYCODONE IR 10 MG TABLET PO ×2 (09:49→17:54)
[2021-09-05] MEDS: ENOXAPARIN 40 MG/0.4 ML SYRINGE SUBCUT (09:50)
[2021-09-05] MEDS: polyethylene glycoL 3350 17 GM POWD.PACK PO (09:50)
--- NOTE | 2021-09-05 10:59 | PC.NURSE ---
Addendum entered by Zeinab Rothman R.N. 09/05/21 14:30: Patients blood pressure low 80s/30s, is aware and has no new orders for patient. Addendum entered by Zeinab Rothman R.N. 09/05/21 13:25: Just talked to STACI Sandoval, and plan is for patient to go home on hospice. Original Note: Assess- Patient is alert and oriented x3, she was able to move side to side and lift up to be put on the commode. Patient given one oxycodone 10mg for pain and discomfort and this has been helpful to her. She is speaking and has her friend by her side. He will be her POA, patient just talked to associate merchandise planner Lori.
--- NOTE | 2021-09-05 12:29 | PC.NURSE ---
Pts blood pressure is 92/42 with an irregular pulse rate jumping from 50 bpm to over [address] Colin has been notified with no new orders. Will continue to monitor.
--- NOTE | 2021-09-05 14:19 | PM.PN.1 ---
Subjective Subjective Date Patient Seen: 09/05/21 Interval history: 80-year-old female presenting with intractable pain and findings of metastatic left renal cell carcinoma.? Patient has been some improvement of severe pain Complains of sore throat today, no cough and a tender neck. Exam Vital Signs (past 8 hours): - 09/05/21 08:00 09/05/21 08:40 09/05/21 12:05 Temperature 99.1 F 98.9 F Pulse Rate 67 65 Respiratory Rate 16 16 Blood Pressure 116/51 L 99/38 L Pulse Oximetry 98 95 93 Oxygen Delivery Method Room Air Oxygen Flow Rate 0 Narrative Exam Narrative: General:? Elderly female who is moderately uncomfortable NECK: tender cervical lymphadenopathy bilaterally, R>L. HEENT: No obvious erythema posteriorly and no visualized exudates. Lungs: CTA b/l. Heart:? Regular but tachycardic Extremities:? No distal edema or joint effusion Objective Labs Result Diagrams: 09/05/21 07:43 09/05/21 07:43 Labs: Laboratory Results - last 24 hr 09/05/21 09/05/21 07:43 07:43 WBC 18.9 H RBC 3.54 L Hgb 10.3 L Hct 32.3 L MCV 91.0 MCH 29.0 MCHC 31.9 RDW 14.7 Plt Count 344 Neut % (Auto) Not Reportable Lymph % (Auto) Not Reportable [place] % (Auto) Not Reportable Eos % (Auto) Not Reportable Baso % (Auto) Not Reportable Lymph # (Auto) Not Reportable [place] # (Auto) Not Reportable Baso # (Auto) Not Reportable Total Counted 100 Seg Neutrophils % 82.0 H Band Neutrophils % 10.0 H Lymphocytes % (Manual) 1.0 L Monocytes % (Manual) 6.0 Eosinophils % (Manual) 1.0 L Neutrophils # (Manual) 12073 H RBC Morphology See below Polychromasia 1+ H Anisocytosis 1+ H Sodium 133 L Potassium 4.8 Chloride 102 Carbon Dioxide 21 L BUN 21 H Creatinine 1.75 H Estimated GFR 29 L BUN/Creatinine Ratio 12.0 Glucose 100 Calcium 8.7 PFSH Medical History Anemia Arthritis Gross hematuria Hypertension (~2009) Left renal mass Left renal mass Surgical History H/O tubal ligation History of bladder surgery History of thyroid surgery Family History Father Cardiac arrest Social History marital status: household members: none Smoking Status: Never smoker alcohol intake: current substance use type: does not use caffeine: Yes Assessment & Plan Assessment & Plan narrative: 80-year-old female presenting with intractable pain due to renal cell carcinoma, opts currently for comfort measures only but agreeable to antibiotics for treatment of possible infection. Awaiting second time worker care-givers or possible transfer to SNF on hospice. 1. Intractable pain secondary to metastatic left renal cell carcinoma -patient with 5 year history of left renal mass which elected not to workup, now presenting with metastatic disease -patient does not wish oncology referral for palliative treatment -admit for pain control -oxycodone increase to 10-50 mg q.3 hours as needed -Atarax 50 mg q.6 hours as needed for severe leg cramps -daily MiraLax, senna HS, Dulcolax p.o./p.r. as needed -hospice referral 2. Bacterial pneumonia or acute pharyngitis -spiked temp 103? on 09/04, WBC increased to 13.5, complains of sore throat today without visable exudates. -declined blood cultures -started on Levaquin initially, CENTOR criteria of 2 for strep throat, will treat bacterial pneumonia with cefalexin and doxycycline to treat both possible etiologies at this time. 3.? Acute on chronic anemia related to malignancy -transfused 2 units PRBC -received Lasix 09/04 due to concern for fluid overload when became tachycardic 4. Chronic hypertension -patient on amlodipine and benazepril at home -hold antihypertensives and monitor blood pressure, may not need if transitioning to hospice care Patient's friend Khris is authorized to make decisions if patient is unable. POLST is updated and notary paperwork signed. Hopefully can discharge patient to home hospice or alternatively SNF comfort care Time Spent With Patient Critical Care time: I spent a total of [] minutes of critical care time on this patient's care today; this time is exclusive of procedural time. Quality VTE Deep Vein Thrombosis/Pulmonary Embolism Present on Admission: No
[2021-09-05] MEDS: fentaNYL 25 MCG/PATCH TOP (15:11)
--- NOTE | 2021-09-05 16:49 | CM.DANOTE ---
DCP/continued: Reviewed chart. Placed call to [facility] to check on referral. Spoke with Dixie and she reports that she did received. Met with LUCIO/Khris to discuss planning. Khris plans to take patient home with private caregivers through [facility]. MIKE spoke with [facility] and faxed records per there request to Fatuma. In addition, notary obtained to assist with documentation indicating that patient is unable to participate in current medical care. Khris will do informational visit with hospice today. DME expected to be delivered to residence tomorrow 09-06. Hospice expected to see patient in the residence on Sunday but no time given yet. [facility] coordinating 20/11 care giving hours to start on Sunday. P: Home with hospice expected on Sunday09-06-21. Patient will need non-urgent BLS transport. MIKE Huston Discharge Planning/Care Management CM Discharge Assessment Start: 09/04/21 13:06 Freq: Status: Active Protocol: Document 09/04/21 13:06 BF (Rec: 09/04/21 13:08 [id number]) Discharge Planning Assessment Assigned Area Development Manager MIKE Velasquez DPROBERTO/Assigned Designee Name Khris Nguyen Contact Information [phone] Advance Directives? Yes Advance Directives on File No History Provided By Patient,Medical Record Has Patient been admitted in last 30 No days? Prior Living Arrangements House Household Members none Type of transporation used prior to Drives own vehicle admit Independent with ADL's Yes Is patient alert and oriented? Yes Caregiver for Another No Comment Comfort Care/Hospice Barriers to Discharge Yes Comment Lives alone, currently not independent with ADLs Discharge Plan Home Transportation Arrangement Friend Khris can transport if safe for home Referrals Initiated Other Additional Comment [facility] referral made Whiteboard Updated in Patient Room with Yes name and ext. # of Area Development Manager Review Status In Process Please Provide Date Initial DC 09/04/21 Assessment Was Performed Next Review Type Continued Stay Review
[2021-09-05] MEDS: DOXYCYCLINE HYCLATE 100 MG TABLET PO (20:56)
[2021-09-05] MEDS: SENNOSIDES 8.6 MG TABLET 17.2 MG PO (20:57)
[2021-09-05] MEDS: cephALEXin 250 MG CAPSULE 500 MG PO (20:57)
[2021-09-06 03:00] VITALS: BP 100/52; PULSE 133; RESP 17; TEMP 36.6; O2SAT 95
[2021-09-06 07:00] VITALS: BP 96/47; PULSE 126; RESP 17; TEMP 36.1; O2SAT 95
[2021-09-06] MEDS: DOXYCYCLINE HYCLATE 100 MG TABLET PO (09:24)
[2021-09-06] MEDS: cephALEXin 250 MG CAPSULE 500 MG PO (09:24)
[2021-09-06] MEDS: ENOXAPARIN 40 MG/0.4 ML SYRINGE SUBCUT (09:25)
[2021-09-06] MEDS: OXYCODONE IR 10 MG TABLET PO (09:25)
--- NOTE | 2021-09-06 10:45 | PC.NURSE ---
Addendum entered by Zeinab Rothman R.N. 09/06/21 18:07: Patient given oxycodone 10mg this am and then 15mg for neck, and throat pain. She is also starting to have secretion build up in her throat. Given some mouth wash and a sponge to clean her mouth out. Patient has not voided this shift and only taken in a small amount of water and beef broth. She complained of slight nausea and a scopalomine patch was placed to the back of her left ear, also for secretion build up. Original Note: Patient is comfortable after giving her 10mg of oxycodone for her back pain 11/06. She also has her fentanyl patch to her r.upper chest. Patient drank a fourth of a cup of beef broth. She sates that she feels dirty, she would like a bed bath today. She is laying in bed with the head up at 70 degrees
[2021-09-06 11:00] VITALS: BP 87/42; PULSE 115; RESP 16; TEMP 36.2; O2SAT 97
--- NOTE | 2021-09-06 14:58 | PM.PN.1 ---
Subjective Subjective Date Patient Seen: 09/06/21 Interval history: Still complains of pain all over, her sore throat is much improved, and overall her pain is actually more tolerable after initiation of a fentanyl patch yesterday. She has had no further fevers, she remains mildly hypotensive and tachycardic but has no current complaints. Plan will be for discharge home tomorrow on hospice once caregivers are available. Exam Vital Signs (past 8 hours): - 09/06/21 07:00 09/06/21 11:00 Temperature 96.9 F L 97.1 F L Pulse Rate 126 H 115 H Respiratory Rate 17 16 Blood Pressure 96/47 L 87/42 L Pulse Oximetry 95 97 Oxygen Delivery Method Room Air Oxygen Flow Rate 0 Narrative Exam Narrative: General:? Elderly female who is moderately uncomfortable NECK: tender cervical lymphadenopathy bilaterally, R>L. HEENT: No obvious erythema posteriorly and no visualized exudates. Lungs: CTA b/l. Heart:? Regular but tachycardic Extremities:? No distal edema or joint effusion Objective Labs Result Diagrams: 09/05/21 07:43 09/05/21 07:43 [facility] Medical History Anemia Arthritis Gross hematuria Hypertension (~2009) Left renal mass Left renal mass Surgical History H/O tubal ligation History of bladder surgery History of thyroid surgery Family History Father Cardiac arrest Social History marital status: household members: none Smoking Status: Never smoker alcohol intake: current substance use type: does not use caffeine: Yes Assessment & Plan Assessment & Plan narrative: 80-year-old female presenting with intractable pain due to renal cell carcinoma, opts currently for comfort measures only but agreeable to antibiotics for treatment of possible infection. Awaiting time checker care-givers for home with hospice. 1. Intractable pain secondary to metastatic left renal cell carcinoma -patient with 5 year history of left renal mass which elected not to workup, now presenting with metastatic disease -patient does not wish oncology referral for palliative treatment -admit for pain control -oxycodone increase to 10 mg q.3 hours as needed, fentanyl patch added with improvement. -Atarax 50 mg q.6 hours as needed for severe leg cramps -daily MiraLax, senna HS, Dulcolax p.o./p.r. as needed -plan for discharge home tomorrow with hospice. 2. Bacterial pneumonia or acute pharyngitis -spiked temp 103? on 09/04, WBC increased to 13.5, complains of sore throat today without visable exudates. -declined blood cultures -started on Levaquin initially, CENTOR criteria of 2 for strep throat, will treat bacterial pneumonia with cefalexin and doxycycline to treat both possible etiologies at this time. 3.? Acute on chronic anemia related to malignancy -transfused 2 units PRBC -received Lasix 09/04 due to concern for fluid overload when became tachycardic 4. Chronic hypertension -patient on amlodipine and benazepril at home -hold antihypertensives and monitor blood pressure, may not need if transitioning to hospice care Patient's friend Khris is authorized to make decisions if patient is unable. POLST is updated and notary paperwork signed. Hopefully can discharge patient to home with hospice plan is for tomorrow. Time Spent With Patient Critical Care time: I spent a total of [] minutes of critical care time on this patient's care today; this time is exclusive of procedural time. Quality VTE Deep Vein Thrombosis/Pulmonary Embolism Present on Admission: No
[2021-09-06 15:00] VITALS: BP 98/53; PULSE 114; RESP 18; TEMP 35.9; O2SAT 96
--- NOTE | 2021-09-06 15:03 | CM.DPNOTE ---
Called [facility] for BLS transport for 1400 on 09/07. Spoke to Lamar and she confirmed date & Time. Agnes Horner Cm Assist.
--- NOTE | 2021-09-06 15:03 | CM.DPC ---
DCP/continued: Reviewed chart. Current d/c plan is for patient to d/c home tomorrow 09-07-21 with caregivers and hospice to see at 2:00pm. CREDIT REVIEW ANALYST confirmed the above with ALBERT/Khris. He confirms that caregivers are confirmed and DME has been delivered today. Dr. Colin made aware of above. POLST completed. CREDIT REVIEW ANALYST completed ambulance necessity form and provider signed. CREDIT REVIEW ANALYST asked DEVAUGHN/Agnes to arranged non-urgent BLS transport for 1:30pm tomorrow. P: Home with hospice on 09-07-21. MIKE Huston
[2021-09-06] MEDS: OXYCODONE IR 5 MG TABLET 15 MG PO (16:03)
[2021-09-06] MEDS: SCOPOLAMINE 1 PATCH TOP (16:15)
[2021-09-06 19:32] VITALS: BP 105/58; PULSE 103; RESP 18; TEMP 36; O2SAT 97
[2021-09-06] MEDS: MORPHINE 4 MG/ML INJ IV (22:17)
--- NOTE | 2021-09-07 08:07 | PM.DS.1 ---
History of Present Illness History of Present Illness Date Patient Seen: 09/07/21 Chief complaint: back pain 3 days Narrative: Per Dr. Cox, Patient is 80-year-old female presents with intractable back pain.? She has history left renal mass suspicious for RCC.? She states this was initially noted about 5 years ago.? Patient has had subsequent CT scans showing enlargement of this mass.? She did not believe CA diagnosis and did not seek further medical evaluation.? She thought it was somehow related to her breast implants which she had at age 21.? Patient states she has had some pain in the back area for quite a while but a few days ago the pain became much more intense and no longer relieved with OTC NSAIDs.? She also reports pain in the head, nape of neck, spine as well as severe cramping in the calves.? She denies fevers, chills, nausea or vomiting, chest pain, dyspnea, dysuria.? She has had intermittent blood in urine.? She has lost 5 lb in recent weeks. ER evaluation showed she is anemic with hemoglobin of 6.6.? Her abdomen and pelvis CT showed a large left renal mass measuring 97 x 59 mm, likely left adrenal metastases, multiple liver metastases and lung metastases. Discharge Providers Provider Date of admission: 09/04/21 18:04 Discharge Date: 09/07/21 Primary care physician: CALLI Rob Consults: 09/06/21 09:29 Consult to Discharge Planning Routine Comment: Consult to Hospice Referral Urgent Comment: Discharge provider: Gio Colin DO Summary Hospital Course Discharge Diagnosis: Please see hospital course by problem list noted below Hospital Course: 80-year-old female presenting with intractable pain due to renal cell carcinoma, opts currently for comfort measures only but agreeable to antibiotics for treatment of possible infection. 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 1. Intractable pain secondary to metastatic left renal cell carcinoma -patient with 5 year history of left renal mass which elected not to workup, now presenting with metastatic disease -patient does not wish oncology referral for palliative treatment -admitted for pain control. Improved with fentanyl patch and oxycodone for pain. -Atarax 50 mg q.6 hours as needed for severe leg cramps -daily MiraLax, senna HS, Dulcolax p.o./p.r. as needed -discharged home with hospice. 2. Bacterial pneumonia or acute pharyngitis -spiked temp 103? on 09/04, WBC increased to 13.5, complains of sore throat on HD#1 without visable exudates, improved a day later. -declined blood cultures -started on Levaquin initially, CENTOR criteria of 2 for strep throat, treated bacterial pneumonia with cefalexin and doxycycline to treat both possible etiologies. Continue for an additional 4 days. 3.? Acute on chronic anemia related to malignancy -transfused 2 units PRBC for anemia initially -received Lasix 09/04 due to concern for fluid overload when became tachycardic. No further medications were given. 4. Chronic hypertension -patient on amlodipine and benazepril at home -hold antihypertensives and monitor blood pressure, may not need if transitioning to hospice care Patient's friend Khris is authorized to make decisions if patient is unable. POLST is updated and notary paperwork signed. Time Spent with Patient Time spent: Greater than 30 minutes Exam Vital Signs (past 8 hours): Oxygen Delivery Method Room Air Oxygen Flow Rate 0 Narrative Exam Narrative: General:? Elderly female who is moderately uncomfortable, cachectic, more lethargic and confused today. NECK: tender cervical lymphadenopathy bilaterally, R>L. HEENT: No obvious erythema posteriorly and no visualized exudates. Lungs: CTA b/l. Heart:? Regular but tachycardic Extremities:? No distal edema or joint effusion Objective Labs Result Diagrams: 09/05/21 07:43 09/05/21 07:43 [facility] Medical History Anemia Arthritis Gross hematuria Hypertension (~2009) Left renal mass Left renal mass Surgical History H/O tubal ligation History of bladder surgery History of thyroid surgery Family History Father Cardiac arrest Social History marital status: household members: none Smoking Status: Never smoker alcohol intake: current substance use type: does not use caffeine: Yes Discharge Plan Discharge Plan Patient Disposition: Hospice - Home Provider Discharge Comment: You were admitted to the hospital and found to have advanced likely renal cell cancer, you opted for discharge home with hospice. Medications were prescribed to help with pain and treat a pneumonia / infection that was found. Discharge orders & Medications Prescriptions: New sennosides [senna] 8.6 mg Tablet 17.2 mg PO BEDTIME 7 Days Qty: 14 0RF polyethylene glycol 3350 17 gram Powder In Packet 17 gm PO DAILY 30 Days Qty: 30 0RF cephalexin 250 mg Capsule 250 mg PO Q8H 4 Days Qty: 12 0RF lorazepam 0.5 mg Tablet 0.5 mg PO Q6HR PRN (Reason: Anxiety) 7 Days Qty: 20 0RF fentanyl 25 mcg/hr Patch 72 Hour 25 mcg topical Q72H 7 Days Qty: 3 0RF doxycycline hyclate 100 mg Tablet 100 mg PO BID 4 Days Qty: 8 0RF oxycodone 5 mg Tablet 15 mg PO Q3HR PRN (Reason: Pain, Severe (7-10)) 7 Days Qty: 50 0RF Discontinued amlodipine [Norvasc] 5 mg tablet 5 mg PO QDAY Qty: 90 3RF benazepril 20 mg tablet 20 mg PO QDAY Qty: 90 3RF Follow up/Referrals: Sung Mercado ARNP [Primary Care Provider] - Diet/Activity/Treatments Diet: Diet as Tolerated Activity: As tolerated Discharge Data Primary Care Provider: Sung Mercado Quality VTE Deep Vein Thrombosis/Pulmonary Embolism Present on Admission: No
[2021-09-07 08:10] VITALS: BP 110/46; PULSE 81; RESP 16; TEMP 36.1; O2SAT 96
[2021-09-07] MEDS: MORPHINE 4 MG/ML INJ IV ×2 (09:18→13:38)
[2021-09-07] MEDS: ENOXAPARIN 40 MG/0.4 ML SYRINGE SUBCUT (09:19)
--- NOTE | 2021-09-07 16:15 | CM.DPNOTE ---
DC Note DC home w/family today via BLS, [facility] arriving for start of care this afternoon Patient's family agreeable to plan Faxed DC Summary in draft form to Karen billingsley [facility] JW
== END 2021-09-07 14:00 | disposition hospice, home (50) | DRG 194 ==
LOC: ED 09:55 → AC 10:00
PROVIDERS: Emergency Medicine; Family Medicine; Admitting Provider Internal Medicine; Emergency Provider Emergency Medicine; PCP Registered Nurse Diabetes Educator; Referring Provider Emergency Medicine; Visit Provider Internal Medicine
DX: J15.9 Unspecified bacterial pneumonia (principal); C64.2 Malignant neoplasm of left kidney, except renal pelvis; C78.7 Secondary malignant neoplasm of liver and intrahepatic bile duct; C78.00 Secondary malignant neoplasm of unspecified lung; J02.9 Acute pharyngitis, unspecified; G89.3 Neoplasm related pain (acute) (chronic); D63.0 Anemia in neoplastic disease; Z66 Do not resuscitate; I95.9 Hypotension, unspecified; Z20.822 Contact with and (suspected) exposure to COVID-19
CPT/HCPCS: 36415; 36430; 71045; 74177; 80048; 80053; 81001; 83690; 85007; 85025; 86850; 86900; 86901; 87040; 87635; 96374; 99284; C9803; G0378; P9016; J1650; J1940; J2270; Q9967